=== PATIENT | male | born 1950 | race Caucasian/White ===

== ENCOUNTER → 2019-03-30 08:33 | Outpatient (CLI) | payer MEDICARE, OTHER, SELFPAY ==
[2019-03-30 09:06] LABS: Hematocrit 40.4 % (40-54); Mean Corp Hgb Conc 34.7 g/dL (32-36); Mean Corpuscular Hgb 31.8 pg (27.0-32.0); Mean Corpuscular Volume 91.8 fL (80-94); Mean Platelet Vol. 9.9 fl (6.2-12.0); Platelet Count 195 K/mm3 (150-450); RBC Distribution Width CV 12.4 % (11.6-14.6); White Blood Count 5.4 K/mm3 (4.4-11.0)
[2019-03-30 09:42] LABS: Vitamin B12 > 2000 pg/mL (211-911)
[2019-03-30 09:47] LABS: ALB/GLOB Ratio 1.2 RATIO (0.9-2.4); AST(SGOT) 18 U/L (15-37); Alanine Aminotransfer ALT/SGPT 23 U/L (16-61); Albumin, Serum 3.7 g/dL (3.2-5.0); Alkaline Phosphatase 77 U/L (45-117); Anion Gap 5 (5-15); BUN 17 mg/dL (7-18); Calcium,Total 8.6 mg/dL (8.5-10.1); Chloride 111 mmol/L (98-107); Cholesterol 142 mg/dL (200); Creatinine, Serum 0.94 mg/dL (0.70-1.30); EST Glomerular Filtration Rate 84 mL/min (>60); Est Glom Filt Rate - Afr Amer 102 mL/min (>60); Globulin 3.1 g/dL (2.2-4.2); Glucose 101 mg/dL (74-106); High Density Lipoprotein 45 mg/dL; Protein, Total 6.8 g/dL (6.4-8.2); Sodium Level 143 mmol/L (136-145); Triglycerides 92 mg/dL; Very Low Density Lipoprotein 18 mg/dL (5-40)
== END ==
DX: E78.2 Mixed hyperlipidemia (principal); R53.83 Other fatigue
CPT/HCPCS: 36415; 80053; 80061; 82607; 85027

== ENCOUNTER → 2025-02-07 | Outpatient (CLI) | payer MEDICARE, SELFPAY ==
--- NOTE | 2025-02-07 10:15 | PET_ITS ---
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 A preliminary CT study encompassing the Skull base, neck, chest, abdomen, pelvis, and proximal thighs was performed for purposes of attenuation correction and anatomic localization. The proximal thighs were also included. The patient's blood glucose level was 99 mg/dL (allowable range: 50-180 mg/dL). RADIOPHARMACEUTICAL: 15.43 mCi 18F-FDG (Fluorodeoxyglucose F18) IV was injected into the patient's left hand. RADIATION DOSE SUMMARY: Effective Dose: Approximately 7 mSv for a standard whole-body PET scan Organ Doses: Varies by organ, with higher doses typically to the bladder, liver, and brain COMPARISON: COMPARISON FROM CT, PET OR OTHER PERTINENT EXAMS: . FINDINGS: Physiologic uptake: There may be expected metabolic uptake within the brain, tongue and floor of the mouth and larynx/vocal cords, heart, tanja (many normal individuals have hilar uptake in less than 3 nodes with mildly avid hilar nodes less than 2.7 SUV), liver and spleen, system, and GI tract and symmetric muscle uptake. FDG AVID AND NON-AVID LESIONS. Reported avid SUV values (g/mL*) are maximum SUV. NECK: There are no significant neck abnormalities. CHEST: Chest wall- There are no significant chest wall abnormalities. Axilla- There are no significant axillary abnormalities. Lung parenchyma- There are no significant lung parenchyma abnormalities. Mediastinum- There are no significant hilar or mediastinal adenopathy. Pleura- There are no significant pleural abnormalities. ABDOMEN: Stomach- No significant abnormalities. Liver- No significant abnormalities. Spleen- No significant abnormalities. Pancrease- No significant abnormalities. Kidneys- No significant abnormalities. Bowel- Normal bowel activity. Spine- No significant abnormalities. PELVIS: Bowel- Normal physiologic bowel activity is identified. Masses- There are no pelvic masses. LOWER EXTREMITIES: Bones- With the use of bone window settings, there are no osteolytic or osteoblastic lesions. There are no FDG avid lesions within the visualized portion of the axial skeleton. PET/PET/CT Tumor Base -Thigh Init IMPRESSION: FDG avid- No significant avid lesions. Suspicious- No significant suspicious abnormalities. Non-FDG avid- No non-FDG avid cysts. Other: No additional comments. Please note the low-dose CT scan was performed to facilitate PET image reconstr uction and anatomic localization and does not replace a diagnostic CT. Any diagnostic CT requested and performed at the time of the PET will be reported separately. Reading Location: [facility]
== END | disposition home or self-care (01) ==
PROVIDERS: Referring Provider Nurse Practitioner Family; Visit Provider Nurse Practitioner Family
DX: M89.9 Disorder of bone, unspecified (principal); D48.7 Neoplasm of uncertain behavior of other specified sites; Z90.79 Acquired absence of other genital organ(s); Z85.46 Personal history of malignant neoplasm of prostate
CPT/HCPCS: 78815; A9552

== ENCOUNTER → 2025-03-23 | Outpatient (CLI) | payer MEDICARE, SELFPAY | END | disposition home or self-care (01) | LOC: CT 12:15 | PROVIDERS: PCP Nurse Practitioner Family; Referring Provider Internal Medicine; Visit Provider Internal Medicine | DX: M25.551 Pain in right hip (principal); R94.8 Abnormal results of function studies of other organs and systems | CPT/HCPCS: 72193; 73701; Q9967; A4216 ==

== ENCOUNTER → 2025-04-17 | Outpatient (CLI) | payer MEDICARE, SELFPAY ==
--- OUTSIDE RECORDS SUMMARY | 2025-04-17 15:17 | XMS RPT_ITS | CCD ---
Author Organization [facility] CliniSyne Care Team Providers Care Nuclear Medicine Supervisor Name Role Phone MASHA MONTANEZ Attending Unavailable PLATE, MAGI Primary Care Unavailable PLATE, MAGI Referring Unavailable PLATE, MAGI Attending Unavailable PLATE, MAGI Referring Unavailable PLATE, MAGI Primary Care Unavailable PLATE, MAGI Attending Unavailable PLATE, MAGI Referring Unavailable PLATE, MAGI Primary Care Unavailable PLATE, MAGI Attending Unavailable PLATE, MAGI Referring Unavailable PLATE, MAGI Primary Care Unavailable PLATE, MAGI Attending Unavailable PLATE, MAGI Referring Unavailable PLATE, MAGI Primary Care Unavailable Plate, Magi S Primary Care Provider [phone] ROOSEVELT DEBURRING TECHNICIAN-CEMENT CONVEYOR OPERATOR, BRINDA Primary Care Physician [phone] ROOSEVELT DEBURRING TECHNICIAN-CEMENT CONVEYOR OPERATOR, BRINDA Primary Care Unavaila ble ROCK DEBURRING TECHNICIAN-CEMENT CONVEYOR OPERATOR, LERSAMANTHA Attending Unavailabl e ROOSEVELT DEBURRING TECHNICIAN-CEMENT CONVEYOR OPERATOR, RBINDA Attending Unavaila ble ALBERT DEBURRING TECHNICIAN-CEMENT CONVEYOR OPERATOR, BRINDA Primary Care Unavaila ble ALAN DEBURRING TECHNICIAN-CEMENT CONVEYOR OPERATOR, YUSEF A Primary Care Physi avani Dr. Magi Francois DO Primary Care Provider [phone] Dr. Juan F Lugo MD Attending Provider [phone] Alek DESHPANDE-CNola Attending Provider Alek DESHPANDE-CNola Referring Provider Magi Francois DO Primary Care Provider Jewel Tirado DO Unavailable Dr. Charlee Higgins DO Attending Provider [phone] Charlee Higgins DO Referring Provider Alek DESHPANDE-Nola Tim Primary Care Provider Magi Francois Primary Care Unavailable Juan F Lugo Attending Unavailable Juan F Lugo Attending Unavailable [facility] Primary Care Unavailable Alessandro, [facility] Primary Care Unavailable Nola Gaston Referring Unavailable Nola Gaston Attending Unavailable Nola Gaston Primary Care Unavailable Fast, Charlee Referring Unavailable FastCharlee Attending Unavailable Medications Current Medications Medication Drug Class(es) Dates Sig (Normalized) Sig (Original) aspirin 81 mg delayed release oral tablet (5 sources) Platelet Aggregation Inhibitor, Nonsteroidal Anti-inflammatory Drug Start: 03-10-2016 take 1 tablet by mouth once daily Aspirin (Adult Low Dose Aspirin Ec) 81 MG tablet,delayed release (DR/EC) Active 81 mg PO DAILY March 10, 2016 12:00am calcium carbonate 1250 mg / cholecalciferol 200 unt oral tablet (1 source) Vitamin D Start: 05-08-2016 take 1 tablet by mouth once daily uyfxryq-hatwoidxe-z itamin D3 (CALCIUM 500+D) 500 mg(1,250mg) -200 unit per tablet Take 1 tablet by mouth once daily. 05/08/2016 Active 24 hr doxazosin 4 mg extended release oral tablet (4 sources) alpha-Adrenergic Yogesh Start: 03-10-2016 take 1 tablet by mouth every twenty-four hours at bedtime Doxazosin (Cardura Xl) 4 MG tablet extended release 24hr Active 4 mg PO AT BEDTIME March 10, 2016 12:00am ergocalciferol 1.25 mg oral capsule (4 sources) Provitamin D2 Compound Start: 03-10-2016 Ergocalciferol (Vitamin D2) (Vitamin D) 50,000 UNIT capsule Active 49196 U PO Q7D March 10, 2016 12:00am inositol 100 mg / niacin 400 mg oral capsule (4 sources) Nicotinic Acid Start: 03-10-2016 take 1 capsule by mouth once daily Niacin (Inositol Niacinate) (Niacin Flush Free 500 Mg Cap) 400 MG capsule Active 500 mg PO DAILY March 10, 2016 12:00am levoFLOXacin 500 mg oral tablet (4 sources) Quinolone Antimicrobial Start: 03-10-2016 take 1 tablet by mouth once daily Levofloxacin 500 MG tablet Active 500 mg PO DAILY 10 March 10, 2016 12:00am Multivitamin preparation (3 sources) Start: 08-30-2020 take 1 tablet by mouth once daily Multivitamin Dose = 1 tab(s), Oral, Daily, 0 Refill(s) Start Date: 08/30/20 Status: Ordered [place] 4-Ezw-Tdu-Fish Oil (Fish Oil) 500 MG capsule,delayed release(DR/EC) (4 sources) Start: 03-10-2016 take 1 capsule by mouth once daily [place] 6-Qnb-Osn-Fish Oil (Fish Oil) 500 MG capsule,delayed release(DR/EC) Active 500 mg PO DAILY March 10, 2016 12:00am [place]-3 Fatty Acids-Vitamin E 1,000 mg cap (2 sources) take 1 capsule by mouth once daily [place]-3 Fatty Acids-Vitamin E 1,000 mg cap Take 1 capsule by mouth once daily. Active take 1 capsule by mouth once jack ly [place]-3 Fatty Acids-Vitamin E 1,000 mg cap Take 1 capsule by mouth once daily. 0 Active Comment on above: Take 1 capsule by mo uth once daily. simvastatin 20 mg oral tablet (8 sources) HMG-CoA Reductase Inhibitor Start: 03-23-2023 simvastatin 20 mg oral tablet Dose : 20 mg = 1 tab(s), Oral, qHS, # 90 tab(s), 1 Refill(s), Pharmacy: [id number], 172.7, cm, 09/29/22 8:55:00 EST, Height, kg, 09/29/22 8:55:00 EST, Dosing Weight Start Date: 03/23/23 Status: Ordered Start: 11-16-2018 End: 04-26-2022 simvastatin 20 mg oral table t Dose : 20 mg = 1 tab(s), Oral, qHS, # 90 tab(s), 3 Refill(s), Pharmacy: [id number], 171, cm, 03/27/22 9:03:00 EDT, Height, kg, 03/27/22 9:03:00 EDT, Dosing Weight Start Date: 03/27/22 Status: Ordered Start: 04-18-2015 take 1 tablet by eric th at bedtime Simvastatin (Zocor) 5 MG tablet Active 5 mg PO AT BEDTIME April 18, 2015 12:00am Vitamin E (3 sources) Start: 05-23-2019 vitamin E Oral , qDay, 0 Refill(s) Start Date: 9/30/19 Status: Ordered Problems Active Problems Problem Classification Problem Date Documented Da te Episodic/Chronic Cancer of prostate (3 sources) History of malignant neoplasm of prostate 02-20-2020 Episodic Disorders of lipid metabolism (5 sources) Mixed hyperlipidemia; Translations: [Hyperlipidemia] Onset: 05-08-2016 05-08-2016 Chronic Genitourinary symptoms and ill-defined conditions (2 sources) Unspecified symptoms and signs involving the genitourinary system; Translations: [Unspecified symptoms and signs involving the genitourinary system] Onset: 07-24-2022 Episodic Hyperplasia of prostate (2 sources) Benign prostatic hypertrophy with outflow obstruction; Translations: [Benign prostatic hyperplasia] Onset: 11-18-2016 11-18-2016 Chronic Other bone disease and musculoskeletal deformities (1 source) Disorder of bone, unspecified; Translations: [Disorder of bone, unspecified] Onset: 02-13-2025 Episodic Other non-traumatic joint disorders (1 source) Pain in right hip; Translations: [Pain in right hip] Onset: 04-08-2025 Episodic Other nutritional; endocrine; and metabolic disorders (2 sources) Obesity, unspecified Onset: 05-11-2018 Chronic Other nutritional; endocrine; and metabolic disorders (1 source) Simple obesity ; Translations: [Non morbid obesity due to excess calories] Onset: 11-18-2016 11-18-2016 Chronic Other nutritional; endocrine; and metabolic disorders (1 source) Obesity caused by energy imbalance; Translations: [Other obesity due to excess calories] Onset: 11-18-2016 11-18-2016 Chronic Other nutritional; endocrine; and metabolic disorders (1 source) Obese class I; Translations: [Obesity, Class I, BMI 30-34.9] Onset: 05-12-2018 05-12-2018 Chronic Other nutritional; endocrine; and metabolic disorders (1 source) Obese class I; Translations: [Obesity, Class I, BMI 30-34.9] Onset: 05-12-2018 05-12-2018 Other skin disorders (1 source) Mass of head 04-06-2023 Episodic Residual codes; unclassified (1 source) Tobacco user; Translations: [Tobacco abuse] Onset: 11-18-2016 11-18-2016 Chronic Past or Other Problems Problem Classification Problem Date Documented Da te Episodic/Chronic Residual codes; unclassified (1 source) Tobacco user; Translations: [Tobacco use] Onset: 11-18-2016 11-18-2016 Episodic Results Test Name Value Interpretation Reference Range Facility Extremity Lower WITH Contras ton 03-23-2025 Extremity Lower WITH Contrast [facility] Imaging Services [address] [place], [place] [id number] Extremity Lower WITH Contrast MR#: [id number] Acct: [id number] Name: KUSHAL MARQUEZ JR, Jr. Rep #: [id number] : 1950 M 74 From: Alex Browne PCP: Nola Gaston, RN RADIOLOGY-C Status: REG CLI Study: Extremity Lower WITH Contrast Date of Exam: Exam# [id number] Ordering Dr: Charlee Higgins DO PROCEDURE: EXTREMITY LOWER WITH CONTRAST 03/23/2025 REASON FOR EXAM: CT FEMUR RIGHT W CONTRAST TECHNIQUE: EXTREMITY LOWER WITHOUT CONTRAST Coronal and Sagittal reconstruction series were provided. One or more dose reduction techniques were used (e.g., Automated exposure control, adjustment of the mA and/or kV according to patient size, use of iterative reconstruction technique). RADIATION DOSE SUMMARY: DLP: 2563.17 MGycm COMPARISON: Right hip and pelvis study of 02/13/25. 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 No right hip joint effusion is seen. Mild degenerative changes are noted of the visualized right sacroiliac joint. Limited imaging of the right knee demonstrates ufay-ry-itggdtul degenerative changes. No right knee joint effusion is noted. No other significant osseous abnormality is seen. No free or loculated fluid collection is noted. CT/Extremity Lower WITH Contrast IMPRESSION: No evidence of acute disease. Additional findings as noted. Reading Location: [place] [address] CC: RN RADIOLOGYMumtazC Nola Gaston; Dr. Charlee Higgins DO Home Care Consultant: Signed Normal [facility] Pelvis WITH IV Contraston Pelvis WITH IV Contrast [facility] Imaging Services [address] [place], [place] [address] Pelvis WITH IV Contrast MR#: [id number] Acct: [id number] Name: KUSHAL MARQUEZ JR, Jr. Rep #: [id number] 6 : 1950 M 74 From: Rancho lima MD PCP: NEGRITA Louis Status: REG CLI Study: Pelvis WITH IV Contrast Date of Exam: 03/23/25 Exam# [id number] Ordering Dr: Charlee Higgins DO PROCEDURE: PELVIS WITH IV CONTRAST 03/23/2025 REASON FOR EXAM: ABNORMAL PET Right hip pain and right pelvic pain. TECHNIQUE: PELVIS WITH IV CONTRAST CONTRAST: Isovue-300 VOLUME: 100 mL RADIATION DOSE SUMMARY: CTDlvol: 25.5 mGy DLP: 2563.17 mGycm COMPARISON: Prior PET scan dated February 09, 2025. FINDINGS: Bladder: Diffuse bladder wall thickening. Polypoid densities are seen in the base of the bladder. Bladder tumor should be ruled out. Prosthetic enlargement with indentation of the bladder base. Ureters: Unremarkable Prostate: Heterogeneous enlargement of the prostate with indentation of the bladder base. Bowel: Unremarkable Appendix: The appendix is not identified. There is no inflammatory process identified in the right lower quadrant to suggest appendicitis. Lymph nodes: Unremarkable Vasculature: Mild diffuse atherosclerotic calcifications are noted. Peritoneum / Retroperitoneum: No ascites. No free air. Bones: There is a 14 mm by 10 mm sclerotic focus along the lateral aspect of the right femoral neck. This most likely represents a bone island since it is not PET avid. Degenerative changes of the lower lumbar spine as well as both hip joints. CT/Pelvis WITH IV Contrast IMPRESSION: Sclerotic focus in the proximal right femur as described most likely representing a bone island. Bladder wall thickening and polypoid lesions suspected at the base of the bladder with prosthetic enlargement. Reading Location: [id number] CC: NEGRITA Gaston; Dr. Charlee Higgins DO Home Care Consultant: Signed [facility] 02-13-2025 [facility] Telephone (AKURFL) KUSHAL MARQUEZ JR ([id number]) 1950 M Date Time Provider Department 02/13/25 MASHA MONTANEZ During your visit today, we recorded the following information about you: Maria Del Rosario Munguia RN 02/13/2025 8:56 AM Signed Received call from Cheryl with [facility], patient is new to the practice and did not know his history or any surgery history. Informed Cheryl that patient had a bilateral orchiectomy in 2015. Gave Cheryl the phone number for medical records that patient can request his complete records. Maria Del Rosario Munguia RN Allergies As of Date: 02/13/2025 (No Known Allergies) Date Reviewed: 11/16/2018 Reviewed by: Magi Francois - Fully Assessed Reason for Visit: Question [1327] Prescriptions as of 02/13/2025 - simvastatin (ZOCOR) 20 mg tablet Take 1 tablet by mouth daily at bedtime. - ntkitor-bapdieugz-tv tamin D3 (CALCIUM 500+D) 500 mg(1,250mg) -200 unit per tablet Take 1 tablet by mouth once daily. - [place]-3 Fatty Acids-Vitamin E 1,000 mg cap Take 1 capsule by mouth once daily. Problem List As Of Date 02/13/2025 Noted Resolved Mixed hyperlipidemia [E78.2] 05/08/2016 Benign non-nodular prostatic hyperplasia with l*11/18/2016 Non morbid obesity due to excess calories [E66.*11/18/2016 Tobacco abuse [Z72.0] 11/18/2016 Obesity, Class I, BMI 30-34.9 [E66.811] 05/12/2018 Encounter Status:Closed by MARIA DEL ROSARIO MUNGUIA on 02/13/25 Normal [facility] HIP, UNI W/ Pelvis 2-3 Views on 02-13-2025 HIP, UNI W/ Pelvis 2-3 Views [facility] Imaging Services [address] [place] [address] HIP, UNI W/ Pelvis 2-3 Views MR#: [id number] Acct: [id number] Name: KUSHAL MARQUEZ JR, Jr. Rep #: [id number] 6 : 1950 M 74 From: Alex Browne PCP: Dr. Magi Francois DO Status: DEP AMB Study: HIP, UNI W/ Pelvis 2-3 Views Date of Exam: Exam# [id number] Ordering Dr: Charlee Higgins DO PROCEDURE: HIP, UNI W/ PELVIS 2-3 VIEWS 02/13/2025 REASON FOR EXAM: PELVIC JOINT PAIN, RIGHT TECHNIQUE: Three-view right hip to include the AP pelvis COMPARISON: PET-CT of 02/07/2025 and abdomen series of 01/17/2025.. RAD/HIP, UNI W/ Pelvis 2-3 Views IMPRESSION: Sclerotic focus of the lateral right femoral neck is again seen, which did not show hypermetabolic activity on the recent PET-CT. This most probably represents an enostosis. Mild bilateral hip joint degenerative changes are seen. No evidence of femoral head osteonecrosis. Hynb-nh-lzjfcsgq bilateral sacroiliac joint degenerative changes are noted. Prominent degenerative changes are seen of the visualized lower lumbar spine, particularly L5-S1. No fracture or dislocation is seen. Reading Location: [place] [address] CC: Dr. Magi Francois DO; Dr. Charlee Higgins DO Home Care Consultant: Signed Normal [facility] L/S Spine Min 4 Views01-23 L/S Spine Min 4 Views [facility] Imaging Services [address] [place] [address] [id number] L/S Spine Min 4 Views MR#: [id number] Acct: [id number] Name: KUSHAL MARQUEZ JR, Jr. Rep #: [id number] : 1950 M 74 From: Jerod Morgan MD PCP: Dr. Magi Francois DO Status: DEP AMB Study: L/S Spine Min 4 Views Date of Exam: 02/13/25 Exam# [id number] Ordering Dr: Charlee Higgins DO PROCEDURE: L/S SPINE MIN 4 VIEWS 02/13/2025 REASON FOR EXAM: PELVIC JOINT PAIN, RIGHT TECHNIQUE: L/S SPINE MIN 4 VIEWS COMPARISON: PET-CT on 02/07/2025 FINDINGS: There are 5 cwv-cmq-btrukjs lumbar-type vertebral bodies. Leftward curvature of the lumbar spine. No pars defect identified. Moderate multilevel disc height loss with endplate osteophyte formation and facet arthrosis. Aortic atherosclerosis. RAD/L/S Spine Min 4 Views IMPRESSION: Moderate multilevel degenerative changes of the lumbar spine. Reading Location: [id number] CC: Dr. Magi Francois DO; Dr. Charlee Higgins DO Home Care Consultant: Signed Normal [facility] Positron emission tomography scan reportOrdered By: Piyush Corbett on 02-09-2025 PT Unspecified body region [facility] Imaging Services [address] [place] [address] [id number] PET/CT Tumor Base -Thigh Init MR#: [id number] Acct: [id number] Name: KUSHAL MARQUEZ JR, Jr. Rep #: [id number] : 1950 M 74 From: Pet er Jovany SCHWARTZ PCP: Dr. Magi Francois DO Status: REG CLI Study:PET/CT Tumor Base -Thigh Init Date of E xam: 02/07/25 Exam# [id number] Ordering Dr: Glenroy Gaston RN RADIOLOGY-C ADDENDUM by Dr. Piyush Corbett DO on 02/09/25 at 1623 PELVIS: Bowel- Normal physiologic bowel activity is identified. Masses- There are no pelvic masses. LOWER EXTREMITIES: Bones- With the use of bone window settings, there is an osteoblastic left S1 segment sacral lesion. There is a punctate 8 mm focus of dense bone in the right femoral head representing either bone island erick osteoblastic metastatic focus. Neither of these lesions show uptake. There are no osteolytic or osteoblastic lesions. There are no FDG avid lesions within the visualized portion of the axial skeleton. Bilateral hip region, in the gluteus muscles, there is increased uptake measuring 3.95 maximum SUV. Surrounding muscle baseline background is 0.74 maximum SUV. This is felt to represent artifact from muscle activity before or during the scan, IMPRESSION FDG avid- No significant avid lesions. Suspicious- No significant suspicious abnormalities. Non-FDG avid- No non-FDG avid cysts. Other: Osteoblastic S1 lesion in right hip ground focus are likely bone metastatic disease but demonstrates no FDG uptake. Bilateral symmetric muscle uptake in the gluteus muscles is felt to represent artifact. Please note the low-dose CT scan was performed to facilitate PET image reconstruction and anatomic localization and does not replace a diagnostic CT. Any diagnostic CT requested and performed at the time of the PET will be reported separately. Reading Location: RAD-[facility]OV[facility]- 02/09/25 1624 Date cc: NEGRITA Gaston; Dr. 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 A preliminary CT study encompassing the Skull base, neck, chest, abdomen, pelvis, and proximal thighs was performed for purposes of attenuation correction and anatomic localization. The proximal thighs were also included. The patient's blood glucose level was 99 mg/dL (allowable range: 50-180 mg/dL). RADIOPHARMACEUTICAL: 15.43 mCi 18F-FDG (Fluorodeoxyglucose F18) IV was injected into the patient's left hand. RADIATION DOSE SUMMARY: Effective Dose: Approximately 7 mSv for a standard whole-body PET scan Organ Doses: Varies by organ, with higher doses typically to the bladder, liver,and brain COMPARISON: COMPARISON FROM CT, PET OR OTHER PERTINENT EXAMS: . FINDINGS: Physiologic uptake: There may be expected metabolic uptake within the brain, tongue and floor of the mouth and larynx/vocal cords, heart, tanja (many normal individuals have hilar uptake in less than 3 nodes with mildly avid hilar nodes less than 2.7 SUV), liver and spleen, system, and GI tract and symmetric muscle uptake. FDG AVID AND NON-AVID LESIONS. Reported avid SUV values (g/mL*) are maximum SUV. NECK: There are no significant neck abnormalities. CHEST: Chest wall- There are no significant chest wall abnormalities. Axilla- There are no significant axillary abnormalities. Lung parenchyma- There are no significant lung parenchyma abnormalities. Mediastinum- There are no significant hilar or mediastinal adenopathy. Pleura- There are no significant pleural abnormalities. ABDOMEN: Stomach- No significant abnormalities. Liver- No significant abnormalities. Spleen- No significant abnormalities. Pancrease- No significant abnormalities. Kidneys- No significant abnormalities. Bowel- Normal bowel activity. Spine- No significant abnormalities. PELVIS: Bowel- Normal physiologic bowel activity is identified. Masses- There are no pelvic masses. LOWER EXTREMITIES: Bones- With the use of bone window settings, there are no osteolytic or osteoblastic lesions. There are no FDG avid lesions within the visualized portion of the axial skeleton. PET/PET/CT Tumor Base -Thigh Init IMPRESSION: FDG avid- No significant avid lesions. Suspicious- No significant suspicious abnormalities. Non-FDG avid- No non-FDG avid cysts. Other: No additional comments. Please note the low-dose CT scan was performed to facilitate PET image reconstruction and anatomic localization and does not replace a diagnostic CT. Any diagnostic CT requested and performed at the time of the PET will be reported separately. Reading Location: [facility] CC: NEGRITA Gaston; Dr. Magi Francois DO (more content not included)... [facility] PET/CT Tumor Base -Thigh [facility] 02-07-2025 PET/CT Tumor Base -Thigh Init [facility] Imaging Services [address] [place] [address] [id number] PET/CT Tumor Base -Thigh Init MR#: [id number] Acct: [id number] Name: ALMA ZUNIGAKUSHAL HARKINS JrPedro Rep #: [id number] 6 : 1950 M 74 From: Piyush Corbett DO PCP: Dr. Magi Francois DO Status: REG CLI Study: PET/CT Tumor Base -Thigh Init Date of Exam: Exam# [id number] Ordering Dr: Nola Gaston ADDENDUM by Dr. Piyush Corbett DO on 02/09/25 at 1623 PELVIS: Bowel- Normal physiologic bowel activity is identified. Masses- There are no pelvic masses. LOWER EXTREMITIES: Bones- With the use of bone window settings, there is an osteoblastic left S1 segment sacral lesion. There is a punctate 8 mm focus of dense bone in the right femoral head representing either bone island or an osteoblastic metastatic focus. Neither of these lesions show uptake. There are no osteolytic or osteoblastic lesions. There are no FDG avid lesions within the visualized portion of the axial skeleton. Bilateral hip region, in the gluteus muscles, there is increased uptake measuring 3.95 maximum SUV. Surrounding muscle baseline background is 0.74 maximum SUV. This is felt to represent artifact from muscle activity before or during the scan, IMPRESSION FDG avid- No significant avid lesions. Suspicious- No significant suspicious abnormalities. Non-FDG avid- No non-FDG avid cysts. Other: Osteoblastic S1 lesion in right hip ground focus are likely bone metastatic disease but demonstrates no FDG uptake. Bilateral symmetric muscle uptake in the gluteus muscles is felt to represent artifact. Please note the low-dose CT scan was performed to facilitate PET image reconstruction and anatomic localization and does not replace a diagnostic CT. Any diagnostic CT requested and performed at the time of the PET will be reported separately. Reading Location: [facility] 02/09/25 1624 Date cc: NEGRITA Gaston; Dr. 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 A preliminary CT study encompassing the Skull base, neck, chest, abdomen, pelvis, and proximal thighs was performed for purposes of attenuation correction and anatomic localization. The proximal thighs were also included. The patient's blood glucose level was 99 mg/dL (allowable range: 50-180 mg/dL). RADIOPHARMACEUTICAL: 15.43 mCi 18F-FDG (Fluorodeoxyglucose F18) IV was injected into the patient's left hand. RADIATION DOSE SUMMARY: Effective Dose: Approximately 7 mSv for a standard whole-body PET scan Organ Doses: Varies by organ, with higher doses typically to the bladder, liver, and brain COMPARISON: COMPARISON FROM CT, PET OR OTHER PERTINENT EXAMS: . FINDINGS: Physiologic uptake: There may be expected metabolic uptake within the brain, tongue and floor of the mouth and larynx/vocal cords, heart, tanja (many normal individuals have hilar uptake in less than 3 nodes with mildly avid hilar nodes less than 2.7 SUV), liver and spleen, system, and GI tract and symmetric muscle uptake. FDG AVID AND NON-AVID LESIONS. Reported avid SUV values (g/mL*) are maximum SUV. NECK: There are no significant neck abnormalities. CHEST: Chest wall- There are no significant chest wall abnormalities. Axilla- There are no significant axillary abnormalities. Lung parenchyma- There are no significant lung parenchyma abnormalities. Mediastinum- There are no significant hilar or mediastinal adenopathy. Pleura- There are no significant pleural abnormalities. ABDOMEN: Stomach- No significant abnormalities. Liver- No significant abnormalities. Spleen- No significant abnormalities. Pancrease- No significant abnormalities. Kidneys- No significant abnormalities. Bowel- Normal bowel activity. Spine- No significant abnormalities. PELVIS: Bowel- Normal physiologic bowel activity is identified. Masses- There are no pelvic masses. LOWER EXTREMITIES: Bones- With the use of bone window settings, there are no osteolytic or osteoblastic lesions. There are no FDG avid lesions within the visualized portion of the axial skeleton. PET/PET/CT Tumor Base -Thigh Init IMPRESSION: FDG avid- No significant avid lesions. Suspicious- No significant suspicious abnormalities. Non-FDG avid- No non-FDG avid cysts. Other: No additional comments. Please note the low-dose CT scan was performed to facilitate PET image reconstruction and anatomic localization and does not replace a diagnostic CT. Any diagnos (more content not included)... Normal [facility] Acute Abdomen Inc [place] Acute Abdomen [facility] Chest [facility] Imaging Services [address] [place] [address] Acute Abdomen [facility] Chest MR#: [id number] Acct: [id number] Name: KUSHAL MARQUEZ JR, Jr. Rep #: [id number] M [id number] From: Montrell Pascal MD PCP: Dr. Magi Francois, DO Status: DEP AMB Study: Acute Abdomen Inc Chest Date of Exam: 01/17/25 Exam# [id number] Ordering Dr: Nola Gaston RN RADIOLOGY-C PROCEDURE: ACUTE ABDOMEN INC CHEST 01/17/2025 REASON FOR EXAM: ABDOMINAL PAIN, RLQ TECHNIQUE: Single view chest with supine and upright views of the abdomen. 2 upright views and 3 supine views to include the entire abdomen and pelvis, 6 total images COMPARISON: None available FINDINGS: The lungs appear clear. No evidence of free air. Nonspecific bowel gas pattern. No gaseous distention of bowel seen. A few scattered air-fluid levels noted. Leftward curvature lumbar spine. Sclerotic focus lateral right femoral neck and possible sclerotic focus posterior right 12th rib, possible metastatic disease. Lower lumbar spondylosis/discogen ic change. RAD/Acute Abdomen Inc Chest IMPRESSION: Nonspecific bowel gas pattern. A few osseous sclerotic foci noted, can not exclude metastatic disease. Reading Location: [facility] CC: RN RADIOLOGY-C Nola Gaston; Dr. Magi Francois DO Home Care Consultant: Signed Normal [facility] LABORATORYOrdered By: SYSTEM SYSTEM on 04-07-2023 Albumin BCP dye [Mass/Vol] 3.9 G/dL Invalid Interpretation Code 3.4 - 4.8 G/dL AO ADM SS Albumin/Globulin [Mass ratio] 1.3 {ratio} Invalid Interpretation Code 1.1 - 2.5 ratio AO ADM SS ALP [Catalytic activity/Vol] 85 U/L Invalid Interpretation Code 40 - 135 U/L AO ADM SS ALT With P-5'-P [Catalytic activity/Vol] 28 U/L Invalid Interpretation Code 16 - 63 U/L AO ADM SS AST With P-5'-P [Catalytic activity/Vol] 18 U/L Invalid Interpretation Code 10 - 40 U/L AO ADM SS Basophil, Absolute 0.1 103/mcL Invalid Interpretation Code 0.0 - 0.2 10^3/mcL AO Workflow SS Basophils/100 WBC (Bld) 0.8 % Invalid Interpretation Code 0.0 - 2.5 % AO Workflow SS Bilirubin [Mass/Vol] 0.7 mg/dL Invalid Interpretation Code 0.2 - 1.0 mg/dL AO ADM SS Comment on above: Interpretive Data: U se of this assay is not recommended for patients undergoing treatment with eltrombopag due to the potential for falsely elevated results. Calcium [Mass/Vol] 8.9 mg/dL Invalid Interpretation Code 8.4 - 10.2 mg/dL AO ADM SS Chloride [Moles/Vol] 106 mmol/L Invalid Interpretation Code 98 - 107 mmol/L AO ADM SS CO2 [Moles/Vol] 25 mmol/L Invalid Interpretation Code 23 - 31 mmol/L AO ADM SS Creatinine [Mass/Vol] 0.97 mg/dL Invalid Interpretation Code 0.70 - 1.30 mg/dL AO ADM SS Electrolyte Balance 13.0 mEq/L Invalid Interpretation Code 4.0 - 15.0 mEq/L AO ADM SS Eosinophil, Absolute 0.1 103/mcL Invalid Interpretation Code 0.0 - 0.4 10^3/mcL AO Workflow SS Eosinophils/100 WBC (Bld) 0.9 % Invalid Interpretation Code 0.0 - 7.0 % AO Workflow SS Erythrocyte distribution width (RBC) [Ratio] 12.9 % Invalid Interpretation Code 11.5 - 14.5 % AO Workflow SS GFR/1.73 sq M.predicted among blacks MDRD (S/P/Bld) [Vol rate/Area] 92 ml/min/1.73sqm Invalid Interpretation Code AO Chemistry S Comment on above: Interpretive Data: GFR Population mean for , Non- Americans Ages 20-29 = 116 mL/min/1.73 sq.m. Ages 30-39 = 107 mL/min/1.73 sq.m. Ages 40-49 = 99 mL/min/1.73 sq.m. Ages 50-59 = 93 mL/min/1.73 sq.m. Ages 60-69 = 85 mL/min/1.73 sq.m. Ages 70+ = 75 mL/min/1.73 sq.m. Chronic Kidney Disease: Less than 60 mL/min/1.73 square meters End Stage Renal Disease: Less than 15 mL/min/1.73 square meters GFR/1.73 sq M.predicted among non-blacks MDRD (S/P/Bld) [Vol rate/Area] 76 ml/min/1.73sqm Invalid Interpretation Code AO Chemistry S Comment on above: Interpretive Data: GFR Population mean for , Non- Americans Ages 20-29 = 116 mL/min/1.73 sq.m. Ages 30-39 = 107 mL/min/1.73 sq.m. Ages 40-49 = 99 mL/min/1.73 sq.m. Ages 50-59 = 93 mL/min/1.73 sq.m. Ages 60-69 = 85 mL/min/1.73 sq.m. Ages 70+ = 75 mL/min/1.73 sq.m. Chronic Kidney Disease: Less than 60 mL/min/1.73 square meters End Stage Renal Disease: Less than 15 mL/min/1.73 square meters Globulin 2.9 G/dL Invalid Interpretation Code AO ADM SS Glucose [Mass/Vol] 110 mg/dL Invalid Interpretation Code 83 - 110 mg/dL AO ADM SS Hematocrit (Bld) [Volume fraction] 42.5 % Invalid Interpretation Code 42.0 - 52.0 % AO Workflow SS Hemoglobin (Bld) [Mass/Vol] 14.8 G/dL Invalid Interpretation Code 14.0 - 18.0 G/dL AO Workflow SS Lymphocyte, Absolute 1.7 103/mcL Invalid Interpretation Code 0.8 - 3.9 10^3/mcL AO Workflow SS Lymphocytes/100 WBC (Bld) 27.2 % Invalid Interpretation Code 10.0 - 50.0 % AO Workflow SS MCH (RBC) [Entitic mass] 31.2 pg Invalid Interpretation Code 27.0 - 31.2 pg AO Workflow SS MCHC 34.8 G/dL Invalid Interpretation Code 31.8 - 35.4 G/dL AO Workflow SS MCV (RBC) [Entitic vol] 89.7 fL Invalid Interpretation Code 80.0 - 94.0 fL AO Workflow SS Monocyte, Absolute 0.6 103/mcL Invalid Interpretation Code 0.2 - 1.0 10^3/mcL AO Workflow SS Monocytes/100 WBC (Bld) 8.9 % Invalid Interpretation Code 1.7 - 13.0 % AO Workflow SS Neutrophil, Absolute 3.9 103/mcL Invalid Interpretation Code 2.9 - 6.2 10^3/mcL AO Workflow SS Neutrophils/100 WBC (Bld) 62.2 % Invalid Interpretation Code 37.0 - 80.0 % AO Workflow SS Platelet mean volume (Bld) [Entitic vol] 7.9 fL Invalid Interpretation Code 7.4 - 10.4 fL AO Workflow SS Platelets (Bld) [#/Vol] 232 103/mcL Invalid Interpretation Code 130 - 400 10^3/mcL AO Workflow SS Potassium [Moles/Vol] 4.3 mmol/L Invalid Interpretation Code 3.5 - 5.1 mmol/L AO ADM SS Prostate specific Ag [Mass/Vol] 0.10 ng/mL Invalid Interpretation Code 0.00 - 4.00 ng/mL AO ADM SS Protein [Mass/Vol] 6.8 G/dL Invalid Interpretation Code 6.4 - 8.2 G/dL AO ADM SS RBC (Bld) [#/Vol] 4.74 106/mcL Invalid Interpretation Code 4.04 - 6.13 10^6/mcL AO Workflow SS Sodium [Moles/Vol] 144 mmol/L Invalid Interpretation Code 136 - 145 mmol/L AO ADM SS Urea nitrogen [Mass/Vol] 12 mg/dL Invalid Interpretation Code 7 - 18 mg/dL AO ADM SS Urea nitrogen/Creatinine [Mass ratio] 12 ratio Invalid Interpretation Code 7 - 27 ratio AO ADM SS WBC (Bld) [#/Vol] 6.3 103/mcL Invalid Interpretation Code 4.6 - 10.8 10^3/mcL AO Workflow SS LABORATORYOrdered By: Yady Soto on 04-07-2023 Cholesterol [Mass/Vol] 123 mg/dL Invalid Interpretation Code 0 - 200 mg/dL AO ADM SS Comment on above: Interpretive Data: C holesterol Reference Interval: Less than 200 Desirable 200-239 Borderline high risk 240 and above High risk Cholesterol in HDL [Mass/Vol] 39 mg/dL Invalid Interpretation Code 40 - 60 mg/dL AO ADM SS Cholesterol in LDL [Mass/Vol] 64 mg/dL Invalid Interpretation Code 0 - 130 mg/dL AO ADM SS Triglyceride [Mass/Vol] 98 mg/dL Invalid Interpretation Code 0 - 150 mg/dL AO ADM SS Comment on above: Interpretive Data: T riglyceride Reference Interval: Less than 150 Normal 150-199 Borderline high risk 200-499 High risk 500 or higher Very high risk AMOXICILLIN+CLAVULANATE:SUSC :PT:ISOLATE:ORDQN:MICon 07-24-2022 Amoxicillin+Clavulana te HARVEY [Susc] >100,000 cfu/ml Escherichia coli [facility] Amoxicillin+Clavulanate HARVEY [Susc]on 12-01-2022 Escherichia coli Escherichia coli [facility] .Auto Diffon 01-27-2022 Basophil, Absolute 0.1 10 3/mcL Normal 0.0-0.2 [facility] ([place]) Comment on above: Performed By: #### L IPID, GFR, CMP #### [address] [address] Basophils/100 WBC (Bld) 0.8 % Normal 0.0-2.5 [facility] ([place]) Comment on above: Performed By: #### L IPID, GFR, CMP #### [address] [address] Eosinophil, Absolute 0.1 10 3/mcL Normal 0.0-0.4 [facility] ([place]) Comment on above: Performed By: #### L IPID, GFR, CMP #### [address] [address] Eosinophils/100 WBC (Bld) 1.4 % Normal 0.0-7.0 [facility] ([place]) Comment on above: Performed By: #### L IPID, GFR, CMP #### [address] [address] Lymphocyte, Absolute 1.9 10 3/mcL Normal 0.8-3.9 [facility] ([place]) Comment on above: Performed By: #### L IPID, GFR, CMP #### [address] [address] Lymphocytes/100 WBC (Bld) 29.8 % Normal 10.0-50.0 [facility] ([place]) Comment on above: Performed By: #### L IPID, GFR, CMP #### [address] [address] Monocyte, Absolute 0.6 10 3/mcL Normal 0.2-1.0 [facility] ([place]) Comment on above: Performed By: #### L IPID, GFR, CMP #### [address] [address] Monocytes/100 WBC (Bld) 9.8 % Normal 1.7-13.0 [facility] ([place]) Comment on above: Performed By: #### L IPID, GFR, CMP #### [address] [address] Neutrophils/100 WBC (Bld) 58.2 % Normal 37.0-80.0 [facility] ([place]) Comment on above: Performed By: #### L IPID, GFR, CMP #### [address] [address] .GFRon 01-27-2022 GFR Non- 72 ml/min/1.73sqm Normal [facility] ([place]) Comment on above: Result Comment: GFR Population mean for , Non- Americans Ages 20-29 = 116 mL/min/1.73 sq.m. Ages 30-39 = 107 mL/min/1.73 sq.m. Ages 40-49 = 99 mL/min/1.73 sq.m. Ages 50-59 = 93 mL/min/1.73 sq.m. Ages 60-69 = 85 mL/min/1.73 sq.m. Ages 70+ = 75 mL/min/1.73 sq.m. Chronic Kidney Disease: Less than 60 mL/min/1.73 square meters End Stage Renal Disease: Less than 15 mL/min/1.73 square meters Performed By: #### L IPID, GFR, CMP #### [address] [address] GFR 87 ml/min/1.73sqm Normal [facility] ([place]) Comment on above: Result Comment: GFR Population mean for , Non- Americans Ages 20-29 = 116 mL/min/1.73 sq.m. Ages 30-39 = 107 mL/min/1.73 sq.m. Ages 40-49 = 99 mL/min/1.73 sq.m. Ages 50-59 = 93 mL/min/1.73 sq.m. Ages 60-69 = 85 mL/min/1.73 sq.m. Ages 70+ = 75 mL/min/1.73 sq.m. Chronic Kidney Disease: Less than 60 mL/min/1.73 square meters End Stage Renal Disease: Less than 15 mL/min/1.73 square meters Performed By: #### L IPID, GFR, CMP #### [place] [id number] .MDWon 01-27-2022 Monocyte Distribution Width Not performed Normal 0.00-20.00 [facility] ([place]) Comment on above: Result Comment: MDW testing performed only on adult ER patients between the ages of 18-89 years. Performed By: #### L IPID, GFR, CMP #### [place] [address] .NEUABSon 01-27-2022 Neutrophil, Absolute 3.7 10 3/mcL Normal 2.9-6.2 [facility] ([place]) Comment on above: Performed By: #### L IPID, GFR, CMP #### [place] [address] CBCon 01-27-2022 Erythrocyte distribution width (RBC) [Ratio] 13.7 % Normal 11.5-14.5 [facility] ([place]) Comment on above: Performed By: #### L IPID, GFR, CMP #### [place] [address] Hematocrit (Bld) [Volume fraction] 42.9 % Normal 42.0-52.0 [facility] ([place]) Comment on above: Performed By: #### L IPID, GFR, CMP #### [place] [address] Hgb 14.5 G/dL Normal 14.0-18.0 [facility] ([place]) Comment on above: Performed By: #### L IPID, GFR, CMP #### [place] [id number] MCH (RBC) [Entitic mass] 30.9 pg Normal 27.0-31.2 [facility] ([place]) Comment on above: Performed By: #### L IPID, GFR, CMP #### [place] [address] MCHC 33.9 G/dL Normal 31.8-35.4 [facility] ([place]) Comment on above: Performed By: #### L IPID, GFR, CMP #### [address] [address] MCV (RBC) [Entitic vol] 91.1 fL Normal 80.0-94.0 [facility] ([place]) Comment on above: Performed By: #### L IPID, GFR, CMP #### [address] [address] Platelet 247 10 3/mcL Normal 130-400 [facility] ([place]) Comment on above: Performed By: #### L IPID, GFR, CMP #### [address] [address] Platelet mean volume (Bld) [Entitic vol] 7.8 fL Normal 7.4-10.4 [facility] ([place]) Comment on above: Performed By: #### L IPID, GFR, CMP #### [address] [address] RBC 4.71 10 6/mcL Normal 4.04-6.13 [facility] ([place]) Comment on above: Performed By: #### L IPID, GFR, CMP #### [address] [address] WBC 6.4 10 3/mcL Normal 4.6-10.8 [facility] ([place]) Comment on above: Performed By: #### L IPID, GFR, CMP #### [address] [address] CMPon 01-27-2022 Albumin Level 3.8 G/dL Normal 3.4-4.8 [facility] ([place]) Comment on above: Performed By: #### L IPID, GFR, CMP #### [address] [address] Albumin/Globulin [Mass ratio] 1.4 {ratio} Normal 1.1-2.5 [facility] ([place]) Comment on above: Performed By: #### L IPID, GFR, CMP #### [address] [address] ALP [Catalytic activity/Vol] 92 U/L Normal 40-135 [facility] ([place]) Comment on above: Performed By: #### L IPID, GFR, CMP #### [address] [address] ALT [Catalytic activity/Vol] 26 U/L Normal 16-63 [facility] ([place]) Comment on above: Performed By: #### L IPID, GFR, CMP #### [address] [address] AST [Catalytic activity/Vol] 14 U/L Normal 10-40 [facility] ([place]) Comment on above: Performed By: #### L IPID, GFR, CMP #### [address] [address] Bili Total 0.4 mg/dL Normal 0.2-1.0 [facility] ([place]) Comment on above: Result Comment: Use of this assay is not recommended for patients undergoing treatment with eltrombopag due to the potential for falsely elevated results. Performed By: #### L IPID, GFR, CMP #### [address] [address] BUN/Creatinine Ratio 12 ratio Normal 7-27 [facility] ([place]) Comment on above: Performed By: #### L IPID, GFR, CMP #### [address] [address] Calcium [Mass/Vol] 9.6 mg/dL Normal 8.4-10.2 [facility] ([place]) Comment on above: Performed By: #### L IPID, GFR, CMP #### [address] [address] Chloride [Moles/Vol] 108 mmol/L High 98-107 [facility] ([place]) Comment on above: Performed By: #### L IPID, GFR, CMP #### [address] [address] CO2 [Moles/Vol] 29 mmol/L Normal 23-31 [facility] ([place]) Comment on above: Performed By: #### L IPID, GFR, CMP #### [address] [address] Creatinine [Mass/Vol] 1.02 mg/dL Normal 0.70-1.30 [facility] ([place]) Comment on above: Performed By: #### L IPID, GFR, CMP #### [address] [address] Electrolyte Balance 8.0 mEq/L Normal 4.0-15.0 [facility] ([place]) Comment on above: Performed By: #### L IPID, GFR, CMP #### [address] [address] Globulin 2.8 G/dL Normal [facility] ([place]) Comment on above: Performed By: #### L IPID, GFR, CMP #### [address] [address] Glucose [Mass/Vol] 103 mg/dL Normal 83-110 [facility] ([place]) Comment on above: Performed By: #### L IPID, GFR, CMP #### [address] [address] Potassium [Moles/Vol] 4.4 mmol/L Normal 3.5-5.1 [facility] ([place]) Comment on above: Performed By: #### L IPID, GFR, CMP #### [address] [address] Sodium [Moles/Vol] 145 mmol/L Normal 136-145 [facility] ([place]) Comment on above: Performed By: #### L IPID, GFR, CMP #### [address] [address] Total Protein 6.6 G/dL Normal 6.4-8.2 [facility] ([place]) Comment on above: Performed By: #### L IPID, GFR, CMP #### [address] [address] Urea nitrogen [Mass/Vol] 12 mg/dL Normal 7-18 [facility] ([place]) Comment on above: Performed By: #### L IPID, GFR, CMP #### [place] [id number] [place] [id number] LABORATORYOrdered By: Jeremiah Tirado on 01-27-2022 Albumin BCP dye [Mass/Vol] 3.8 G/dL Invalid Interpretation Code 3.4 - 4.8 G/dL AO ADM SS Albumin/Globulin [Mass ratio] 1.4 {ratio} Invalid Interpretation Code 1.1 - 2.5 ratio AO ADM SS ALP [Catalytic activity/Vol] 92 U/L Invalid Interpretation Code 40 - 135 U/L AO ADM SS ALT With P-5'-P [Catalytic activity/Vol] 26 U/L Invalid Interpretation Code 16 - 63 U/L AO ADM SS AST With P-5'-P [Catalytic activity/Vol] 14 U/L Invalid Interpretation Code 10 - 40 U/L AO ADM SS Bilirubin [Mass/Vol] 0.4 mg/dL Invalid Interpretation Code 0.2 - 1.0 mg/dL AO ADM SS Calcium [Mass/Vol] 9.6 mg/dL Invalid Interpretation Code 8.4 - 10.2 mg/dL AO ADM SS Chloride [Moles/Vol] 108 mmol/L Invalid Interpretation Code 98 - 107 mmol/L AO ADM SS Cholesterol [Mass/Vol] 142 mg/dL Invalid Interpretation Code 0 - 200 mg/dL AO ADM SS Cholesterol in HDL [Mass/Vol] 43 mg/dL Invalid Interpretation Code 40 - 60 mg/dL AO ADM SS Cholesterol in LDL [Mass/Vol] 73 mg/dL Invalid Interpretation Code 0 - 130 mg/dL AO ADM SS CO2 [Moles/Vol] 29 mmol/L Invalid Interpretation Code 23 - 31 mmol/L AO ADM SS Creatinine [Mass/Vol] 1.02 mg/dL Invalid Interpretation Code 0.70 - 1.30 mg/dL AO ADM SS Electrolyte Balance 8.0 mEq/L Invalid Interpretation Code 4.0 - 15.0 mEq/L AO ADM SS Globulin 2.8 G/dL Invalid Interpretation Code AO ADM SS Glucose [Mass/Vol] 103 mg/dL Invalid Interpretation Code 83 - 110 mg/dL AO ADM SS Potassium [Moles/Vol] 4.4 mmol/L Invalid Interpretation Code 3.5 - 5.1 mmol/L AO ADM SS Protein [Mass/Vol] 6.6 G/dL Invalid Interpretation Code 6.4 - 8.2 G/dL AO ADM SS Sodium [Moles/Vol] 145 mmol/L Invalid Interpretation Code 136 - 145 mmol/L AO ADM SS Triglyceride [Mass/Vol] 132 mg/dL Invalid Interpretation Code 0 - 150 mg/dL AO ADM SS Urea nitrogen [Mass/Vol] 12 mg/dL Invalid Interpretation Code 7 - 18 mg/dL AO ADM SS Urea nitrogen/Creatinine [Mass ratio] 12 ratio Invalid Interpretation Code 7 - 27 ratio AO ADM SS LABORATORYOrdered By: Yady Elise on 01-27-2022 Basophil, Absolute 0.1 103/mcL Invalid Interpretation Code 0.0 - 0.2 10^3/mcL AO Workflow SS Basophils/100 WBC (Bld) 0.8 % Invalid Interpretation Code 0.0 - 2.5 % AO Workflow SS Eosinophil, Absolute 0.1 103/mcL Invalid Interpretation Code 0.0 - 0.4 10^3/mcL AO Workflow SS Eosinophils/100 WBC (Bld) 1.4 % Invalid Interpretation Code 0.0 - 7.0 % AO Workflow SS Erythrocyte distribution width (RBC) [Ratio] 13.7 % Invalid Interpretation Code 11.5 - 14.5 % AO Workflow SS Hematocrit (Bld) [Volume fraction] 42.9 % Invalid Interpretation Code 42.0 - 52.0 % AO Workflow SS Hgb 14.5 G/dL Invalid Interpretation Code 14.0 - 18.0 G/dL AO Workflow SS Lymphocyte, Absolute 1.9 103/mcL Invalid Interpretation Code 0.8 - 3.9 10^3/mcL AO Workflow SS Lymphocytes/100 WBC (Bld) 29.8 % Invalid Interpretation Code 10.0 - 50.0 % AO Workflow SS MCH (RBC) [Entitic mass] 30.9 pg Invalid Interpretation Code 27.0 - 31.2 pg AO Workflow SS MCHC 33.9 G/dL Invalid Interpretation Code 31.8 - 35.4 G/dL AO Workflow SS MCV (RBC) [Entitic vol] 91.1 fL Invalid Interpretation Code 80.0 - 94.0 fL AO Workflow SS Monocyte, Absolute 0.6 103/mcL Invalid Interpretation Code 0.2 - 1.0 10^3/mcL AO Workflow SS Monocytes/100 WBC (Bld) 9.8 % Invalid Interpretation Code 1.7 - 13.0 % AO Workflow SS Neutrophil, Absolute 3.7 103/mcL Invalid Interpretation Code 2.9 - 6.2 10^3/mcL AO Workflow SS Neutrophils/100 WBC (Bld) 58.2 % Invalid Interpretation Code 37.0 - 80.0 % AO Workflow SS Platelet 247 103/mcL Invalid Interpretation Code 130 - 400 10^3/mcL AO Workflow SS Platelet mean volume (Bld) [Entitic vol] 7.8 fL Invalid Interpretation Code 7.4 - 10.4 fL AO Workflow SS RBC 4.71 106/mcL Invalid Interpretation Code 4.04 - 6.13 10^6/mcL AO Workflow SS WBC 6.4 103/mcL Invalid Interpretation Code 4.6 - 10.8 10^3/mcL AO Workflow SS LABORATORYOrdered By: SYSTEM SYSTEM on 01-27-2022 GFR 87 ml/min/1.73sqm Invalid Interpretation Code AO Chemistry S GFR Non- 72 ml/min/1.73sqm Invalid Interpretation Code AO Chemistry S Monocyte distribution width Auto (Bld) [Entitic vol] Not Performed 1 *NA* (01/27/22 9:20 AM) Invalid Interpretation Code 0.00 - 20.00 AO Hematology S Comment on above: Result Comment: MDW testing performed only on adult ER patients between the ages of 18-89 years. LIPIDon 01-27-2022 Cholesterol [Mass/Vol] 142 mg/dL Normal 0-200 [facility] ([place]) Comment on above: Result Comment: Chol esterol Reference Interval: Less than 200 Desirable 200-239 Borderline high risk 240 and above High risk Performed By: #### L IPID, GFR, CMP #### [address] [address] Cholesterol in HDL [Mass/Vol] 43 mg/dL Normal 40-60 [facility] ([place]) Comment on above: Performed By: #### L IPID, GFR, CMP #### [address] [address] Cholesterol in LDL [Mass/Vol] 73 mg/dL Normal 0-130 [facility] ([place]) Comment on above: Performed By: #### L IPID, GFR, CMP #### [address] [address] Triglyceride [Mass/Vol] 132 mg/dL Normal 0-150 [facility] ([place]) Comment on above: Result Comment: Trig lyceride Reference Interval: Less than 150 Normal 150-199 Borderline high risk 200-499 High risk 500 or higher Very high risk Performed By: #### L IPID, GFR, CMP #### [place] [address] [place], [place] [address] Otheron 03-27-2016 CONVERTED CLINICAL HISTORY OPERATIVE PROCEDURE: Bilateral orchiectomy CLINICAL INFORMATION: Bilateral testicular masses [facility] CONVERTED ELECTRONIC SIGNATURE MARTIN MOTA M.D., PATHOLOGIST (Electronic signature on file) Final Signed Out: 03/27/2016 14:48 [facility] CONVERTED FINAL DIAGNOSIS FINAL DIAGNOSIS: A) RIGHT TESTICLE, ORCHIECTOMY - BENIGN TESTICULAR TISSUES WITH AREAS OF ABSCESS AND INFARCT. SPECIAL STAINS FOR BACTERIA, FUNGAL ORGANISMS, AND ACID FAST BACTERIA ARE NEGATIVE. HYDROCELE. SEE COMMENT. B) LEFT TESTICLE, ORCHIECTOMY - BENIGN TESTICULAR TISSUES WITH FOCAL CHRONIC INFLAMMATION AND AREAS OF MARKEDLY DILATED SEMINIFEROUS TUBULES. HYDROCELE. SEE COMMENT. COMMENT: The bilateral testicles have no evidence of malignancy identified. The markedly dilated seminiferous tubules present on the left side suggest an element of obstruction. Evidence of an infectious etiology cannot be identified on the performed special stains. Clinical correlation is required. This case was discussed with Dr. Montanez's restaurant assistant on 03/27/16 at 1 pm. [facility] CONVERTED GROSS DESCRIPTION GROSS DESCRIPTION: A) Right testicle Received in formalin labeled with the patient's name and as right testicle is a 103 gm right orchiectomy specimen that measures 7.5 x 5.5 x 5.0 cm with an attached transected spermatic cord that measures 3.5 cm in length x 2.0 cm in diameter. The tunica vaginalis is intact. The spermatic cord margin is inked orange and the remaining specimen is inked green. The specimen is bivalved to reveal a prominent serous fluid-filled cavity that measures 6.5 x 5.0 x 3.5 cm. The tunica albicans is focally obliterated and there is a poorly demarcated murphy-yellow fibrous mass identified that measures 1.8 x 1.6 x 1.3 cm. The tunica albicans is markedly thickened in the area of the mass and the mass resides 8.0 cm from the spermatic cord margin. The epididymis shows constricted/punctate tubular channels. The rete testis has a prominent appearance and measures 1.5 cm in greatest dimension. The seminiferous vesicles have a pale murphy fibrous appearance and do not string with ease. The specimen is representatively submitted as follows: A1 spermatic cord margin; A2 spermatic cord base; A3-A5 mass; A6-A7 sections of epididymis and rete testis; A8 sections of cyst wall. B) Left testicle Received in formalin labeled with the patient's name and as left testicle is a 102 gm left orchiectomy specimen that measures 7.7 x 5.5 x 4.0 cm with an attached transected spermatic cord that measures 1.6 cm in length x 2.0 cm in diameter. The tunica vaginalis is intact. The spermatic cord margin is inked orange and the remaining specimen is inked blue. The specimen is bivalved to reveal a prominent serous fluid-filled cystic cavity that measures 5.0 x 4.0 x 3.0 cm. The tunica albicans is intact and there is a poorly demarcated, murphy-yellow mass that measures 1.3 x 1.0 x 0.9 cm and is associated with fibrotic change. This mass resides 8.5 cm from the spermatic cord margin. The epididymis has constricted/punctate tubular channels and the rete testis has a somewhat prominent appearance and measures 1.0 cm in greatest dimension. The seminiferous vesicles are rivas-pink and string with ease. The specimen is representatively submitted as follows: B1 spermatic cord margin; B2-B3 entire mass; B4 epididymis; B5-B6 senior human resources representative section of parenchyma; B7 cyst wall. EM:[facility] CONVERTED ORDERING PROVIDER Ordering Provider: MASHA MONTANEZ [facility] Encounters Encounter Date Encounter Type Care Provider Facility Start: 03-23-2025 End: 03-23-[address] Magi Francois DO Work Phone: -[facility] Start: 03-23-2025 End: 03-23-[address] Charlee Higgins DO -[facility] Work Phone: Start: 03-23-2025 End: 03-23-2025 ambulatory Nola Gaston Facility:[facility] Start: 02-13-2025 End: 02-13-2025 Telephone encounter Masha Montanez MD Work Phone: [facility] Comment on above: Question Start: 02-13-2025 End: 02-13-[address] Juan F Lugo MD -[facility] Start: 02-13-2025 End: 02-13-[address] Magi Francois DO Work Phone: [facility] Work Phone: Start: 02-07-2025 End: 02-07-[address] Magi Francois DO Work Phone: [facility] Work Phone: Start: 02-07-2025 End: 02-07-2025 Patient encounter procedure Nola REES -[facility] Start: 02-07-2025 End: 02-07-2025 ambulatory Magi Francois Facility:[facility] Start: 01-17-2025 End: 01-17-[address] Juan F Lugo MD -[facility] Start: 01-17-2025 End: 01-17-[address] Magi Francois DO Work Phone: [facility] Work Phone: Start: 04-07-2023 End: 04-07-2023 Patient encounter procedure YUSEF PHILLIPS DEBURRING TECHNICIAN-CEMENT CONVEYOR OPERATOR [facility] Start: 07-24-2022 End: 07-29-2022 ambulatory BRINDA ALBERT DEBURRING TECHNICIAN-CEMENT CONVEYOR OPERATOR Facility:[facility] Start: 07-24-2022 End: 07-28-2022 Outreach Lab JOSE RESTREPO DEBURRING TECHNICIAN-CEMENT CONVEYOR OPERATOR [facility] Start: 01-27-2022 End: 01-28-2022 ambulatory BRINDA ALBERT DEBURRING TECHNICIAN-CEMENT CONVEYOR OPERATOR Facility:[facility] Start: 01-27-2022 End: 01-27-2022 Patient encounter procedure BRINDA ALBERT DEBURRING TECHNICIAN-CEMENT CONVEYOR OPERATOR [facility] Start: 05-20-2019 Patient encounter procedure MAGI PLATE Facility:[facility] Start: 11-16-2018 End: 11-16-2018 Patient encounter procedure MAGI PLATE Facility:[facility] Start: 05-11-2018 End: 05-11-2018 Patient encounter procedure MAGI PLATE Facility:[facility] Start: 04-29-2018 Patient encounter procedure MAGI PLATE Facility:[facility] Start: 01-21-2018 End: 01-21-2018 Patient encounter procedure MASHA MONTANEZ Facility:[facility] Start: 03-21-2016 End: 03-21-2016 Patient encounter procedure Masha Montanez Work Phone: [facility] Start: 03-21-2016 Results Only Masha Montanez Work Phone: [facility][1] Procedures Date Procedure Procedure Detail Performing Clinician Start: 03-23-2025 CT of lower limb wit h contrast Dr. Magi Francois DO Work Phone: Start: 03-23-2025 CT of pelvis with contrast Dr. Magi Francois DO Work Phone: Start: 02-13-2025 Plain x-ray of pelvi s and lower extremity Dr. Magi Francois DO Work Phone: Start: 02-13-2025 X-ray of lumbosacral spine Dr. Magi Francois DO Work Phone: Start: 02-07-2025 Positron emission tomography with computed tomography Dr. Magi Francois DO Work Phone: Start: 01-17-2025 Plain X-ray abdomen Dr. Magi Francois DO Work Phone: Start: 03-21-2016 CONVERTED SURGICAL PATHOLOGY Masha Montanez Work Phone: Prostatic structure (body structure) BRINDA ALBERT DEBURRING TECHNICIAN-CEMENT CONVEYOR OPERATOR Comment on above: tumor 04/09 Plan of Treatment Date Care Activity Detail Author Start: 04-24-2025 Influenza vaccination Influenz a Vaccine (Season Ended) [facility] Start: 02-13-2025 Plain x-ray of pelvi s and lower extremity HIP, UNI W/ Pelvis 2-3 Views [facility] Start: 02-13-2025 X-ray of lumbosacral spine L/S Spine Min 4 Views [facility] Start: 02-13-2025 XR Spine Lumbar and Sacrum GE 4 Views [facility] Start: 02-13-2025 Plain radiography of pelvis Pelvis 1 or 2 Views [facility] Start: 01-17-2025 Plain X-ray abdomen Abdomen Single V iew [facility] Start: 08-24-2024 Advance Directive Discussion Advance Directive Discussion [facility] Start: 04-24-2024 Covid-19 Vaccine ( season) Covid-19 Vaccine ( season) [facility] Start: 2023 RSV Vaccine (1 - 1-d ose 75+ series) RSV Vaccine (1 - 1-dose 75+ series) [facility] Start: 04-07-2023 Urine microalbumin profile [facility] Start: 11-16-2021 DIABETES SCREEN DIABETES SCREEN [facility] Start: 11-16-2021 Diabetes Screening Diabetes Screenin g [facility] Start: 09-25-2020 LIPID SCREEN LIPID SCREEN [facility] Start: 04-24-2020 Influenza vaccination INFLUENZA (#1) [facility] Start: 03-17-2018 Tuberculosis screening COLOREC DELMY CANCER SCREENING,SEE MODIFIER [facility] Start: 2013 ADVANCE DIRECTIVE DISCUSSION ADVANCE DIRECTIVE DISCUSSION [facility] Start: 1998 SHINGRIX VACCINE (1 of 2) TAVERA GRIX VACCINE (1 of 2) [facility] Start: 1966 Anxiety Screening Anxiety Screening [facility] Start: 1966 Depression Screening Depression Scre ening [facility] Immunizations Immunization Date Immunization Notes Care Provider Jeremy benavides 07-08-2021 SARS-CoV-2 (COVID-19 ) mRNA-1273 vaccine BRINDA ALBERT DEBURRING TECHNICIAN-CEMENT CONVEYOR OPERATOR [facility] 11-05-2020 COVID-19, mRNA, LNP- S, PF, 100 mcg or 50 mcg dose; Translations: [Moderna COVID-19 Vaccine] BRINDA ALBERT DEBURRING TECHNICIAN-CEMENT CONVEYOR OPERATOR [facility] 10-08-2020 COVID-19, mRNA, LNP- S, PF, 100 mcg or 50 mcg dose; Translations: [Moderna COVID-19 Vaccine] BRINDA ALBERT DEBURRING TECHNICIAN-CEMENT CONVEYOR OPERATOR [facility] 05-24-2020 influenza virus vacc ine, unspecified formulation BRINDA ALBERT DEBURRING TECHNICIAN-CEMENT CONVEYOR OPERATOR [facility] 05-23-2019 influenza, injectabl e, quadrivalent, preservative free; Translations: [Fluarix PF Quadrivalent ] BRINDA ALBERT DEBURRING TECHNICIAN-CEMENT CONVEYOR OPERATOR [facility] 05-11-2018 influenza virus vacc ine, unspecified formulation BRINDA ALBERT DEBURRING TECHNICIAN-CEMENT CONVEYOR OPERATOR [facility] 05-11-2018 influenza, high dose seasonal, preservative-free Masha Montanez MD Work Phone: [facility] 09-25-2015 influenza virus vacc ine, unspecified formulation BRINDA ALBERT DEBURRING TECHNICIAN-CEMENT CONVEYOR OPERATOR [facility] 09-25-2015 influenza, high dose seasonal, preservative-free Masha Montanez [facility] 09-25-2015 pneumococcal polysaccharide vaccine, 23 valent Masha Montanez MD Work Phone: [facility] 04-24-2015 pneumococcal conjuga te vaccine, 13 valent Masha Montanez [facility] 10-11-2013 influenza virus vacc ine, unspecified formulation BRINDA ALBERT DEBURRING TECHNICIAN-CEMENT CONVEYOR OPERATOR [facility] 10-11-2013 influenza, seasonal, injectable [facility] 10-11-2013 pneumococcal polysaccharide vaccine, [address] [facility] 04-07-2013 tetanus toxoid, redu junie diphtheria toxoid, and acellular pertussis vaccine, adsorbed [facility] Payers Date Payer Category Payer Self-pay 2022 Medicare [id number] 2013 Medicare MEDICARE MEDICAR E A AND B [id number] 2013-Present [place] Medicare [id number] 2013 Medicare MEDICARE [id number] 2013 Private Health Insurance HUMANA HUMANA MEDICARE SUPPLEMENT [id number] 2013-Present Indemnity [id number] 2013 Private Health Insurance HUMANA [id number] 1948 Unknown [id number] .[id number] 1950 Unknown [id number] .[id number] 1948 Unknown [id number] .[id number] 1948 Unknown [id number] .[id number] 1948 Unknown [id number] .[id number] 1948 Unknown [id number] .[id number] 1950 Unknown [id number] .[id number] Medicare [id number] Medicare [id number] Private Health Insurance [id number] Unknown [id number] Unknown [id number] .[id number] Unknown [id number] .[id number] Unknown [id number] .[id number] Social History Date Type Detail Facility Start: 01-29-2016 Tobacco smoking stat RUSTIS Unknown if ever smoked [facility] Start: 01-29-2016 End: 05-08-2016 Tobacco use and exposure Current user [facility] History of tobacco use Chews Tobacco [facility] Start: 01-29-2016 End: 11-16-2018 Alcohol intake Current non-drinker of alcohol (finding) [facility] Start: 1950 Sex Assigned At Not on file [facility] Tobacco Tobacco Use: sukumar wing tobacco. [facility] Sex Assigned At [facility] Start: 01-17-2025 End: 02-13-2025 Tobacco smoking status NHIS Ex-smoker (finding) [facility] Start: 1950 Sex Assigned At Male W [facility] History of tobacco use Current smoker [facility] Start: 11-16-2018 End: 07-29-2020 History of Social function [facility] Start: 11-16-2018 End: 07-29-2020 Tobacco use panel [facility] Adult Depression Screening Assessment 0 [facility] Clinical Notes 07-27-2022 to 03-23-2025 Telephone Encounter - Maria Del Rosario Munguia RN - 02/13/2025 8:53 AM EDTTelephone Encounter - Maria Del Rosario Munguia RN - 02/13/2025 8:53 AM EDTLaboratoryLaboratory Note Date & Type Note Facility 03-23-2025 Radiology Diagnostic study note [facility] Imaging Services [address], [place] [address] Extremity Lower WITH Contrast MR#: [id number] Acct: [id number] Name: ALMA ZUNIGAKUSHAL HARKINS Rep #: [id number] : [id number] M [id number] From: Bjorn Abbott MD PCP: Nola Gaston RN RADIOLOGY-C Status: REG C ORALIA Study:Extremity Lower WITH Contrast Date of E xam: 03/23/25 Exam# [id number] Ordering Dr: Doreen Higgins ra, DO PROCEDURE: EXTREMITY LOWER WITH CONTRAST 03/23/2025 REASON FOR EXAM: CT FEMUR RIGHT W CONTRAST TECHNIQUE: EXTREMITY LOWER WITHOUT CONTRAST Coronal and Sagittal reconstruction series were provided. One or more dose reduction techniques were used (e.g., Automated exposure control, adjustment of the mA and/or kV according to patient size, use of iterative reconstruction technique). RADIATION DOSE SUMMARY: DLP: 2563.17 MGycm COMPARISON: Right hip and pelvis study of 02/13/25. 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 No right hip joint effusion is seen. Mild degenerative changes are noted of the visualized right sacroiliac joint. Limited imaging of the right knee demonstrates [id number] degenerative changes. No right knee joint effusion is noted. No other significant osseous abnormality is seen. No free or loculated fluid collection is noted. CT/Extremity Lower WITH Contrast IMPRESSION: No evidence of acute disease. Additional findings as noted. Reading Location: [place] [address] CC: RN RADIOLOGY-C Nola Gaston; Dr. Charlee Higgins DO ~ Home Care Consultant: Signed [facility] 03-23-2025 Radiology Diagnostic study note [facility] Imaging Services [address] [place], [place] [address] Pelvis WITH IV Contrast MR#: [id number] Acct: [id number] Name: ALMA ZUNIGAKUSHAL HARKINS Rep #: [id number] : [id number] M [id number] From: Justice Jackson MD PCP: PENELOPE LouisC Status: REG C LI Study:Pelvis WITH IV Contrast Date of Exam: 03/23/25 Exam# [id number] Ordering Dr: Doreen Higgins ra, DO PROCEDURE: PELVIS WITH IV CONTRAST 03/23/2025 REASON FOR EXAM: ABNORMAL PET Right hip pain and right pelvic pain. TECHNIQUE: PELVIS WITH IV CONTRAST CONTRAST: Isovue-300 VOLUME: 100 mL RADIATION DOSE SUMMARY: CTDlvol: 25.5 mGy DLP: 2563.17 mGycm COMPARISON: Prior PET scan dated February 09, 2025. FINDINGS: Bladder: Diffuse bladder wall thickening. Polypoid densities are seen in the base of the bladder. Bladder tumor should be ruled out. Prosthetic enlargement with indentation of the bladder base. Ureters: Unremarkable Prostate: Heterogeneous enlargement of the prostate with indentation of the bladder base. Bowel: Unremarkable Appendix: The appendix is not identified. There is no inflammatory process identified in the right lower quadrant to suggest appendicitis. Lymph nodes: Unremarkable Vasculature: Mild diffuse atherosclerotic calcifications are noted. Peritoneum / Retroperitoneum: No ascites. No free air. Bones: There is a 14 mm by 10 mm sclerotic focus along the lateral aspect of theright femoral neck. This most likely represents a bone island since it is not PET avid. Degenerative changes of the lower lumbar spine as well as both hip joints. CT/Pelvis WITH IV Contrast IMPRESSION: Sclerotic focus in the proximal right femur as described most likely representing a bone island. Bladder wall thickening and polypoid lesions suspected at the base of the bladder with prosthetic enlargement. Reading Location: [id number] CC: NEGRITA Gaston; Dr. Charlee Higgins, DO ~ Home Care Consultant: Signed [facility] 02-13-2025 Telephone encounter Note Received call from Cheryl with [facility], patient is new to the practice and did not know his history or any surgery history. Informed Cheryl that patient had a bilateral orchiectomy in 2016. Gave Cheryl the phone number for medical records that patient can request his complete records. Maria Del Rosario Munguia RN [facility] Work Phone: 02-13-2025 Miscellaneous Notes Received call from Cheryl with [facility], patient is new to the practice and did not know his history or any surgery history. Informed Cheryl that patient had a bilateral orchiectomy in 2015. Gave Cheryl the phone number for medical records that patient can request his complete records. Maria Del Rosario Munguia RN documented in this encounter [facility] 07-27-2022 Note . MICRO - Microbiology PROCEDURE: Urine Culture [*1] SOURCE: Urine, Clean Catch BODY SITE: COLLECTED DATE/TIME: 07/24/2022 17:48 EST RECEIVED DATE/TIME: 07/25/2022 15:10 EST START DATE/TIME: 07/25/2022 15:10 EST FREE TEXT SOURCE: FINAL REPORTS Final Report [] Verified Date/Time/Personnel: 07/27/2022 08:18 EST >100,000 cfu/ml Escherichia coli SUSCEPTIBILITY RESULTS Escherichia coli Antibiotic HARVEY Dilut HARVEY Inter Ampicillin <=8 Susceptible Ampicillin/ <=4/2 Susceptible Sulbactam Aztreonam <=4 Susceptible Cefazolin <=2 Susceptible Ciprofloxacin <=0.25 Susceptible Ertapenem <=0.5 Susceptible Gentamicin <=2 Susceptible Imipenem <=1 Susceptible Levofloxacin <=0.5 Susceptible Meropenem <=1 Susceptible Minocycline <=4 Susceptible Nitrofurantoin <=32 Susceptible Trimethoprim/ <=0.5/9.5 Susceptible Sulfa Performing Locations *1: This test was performed at: [facility], [address] [place] [address], [facility] , [facility] ([place]) Evaluation + Plan note Future Appointments Appointment Date:03/19/2022 08:50:00 AM Scheduled Provider:BRINDA ALBERT Location:[place] Appointment Type:PC OV Follow Up Future Scheduled TestsLipid Profile 09/11/21Complete Metabolic Panel 03/12/21 [facility] Evaluation + Plan note Future Appointments Appointment Date:09/29/2022 09:00:00 AM Scheduled Provider:YUSEF PHILLIPS Location:[facility] Appointment Type:PC OV Future Scheduled TestsLipid Profile 09/11/21 [facility] Evaluation + Plan note Future Appointments Appointment Date:10/09/2023 09:00:00 AM Scheduled Provider:YUSEF PHILLPIS Location:[place] Appointment Type:PC OV [facility] Evaluation note No assessment inform ation available [facility] Work Phone: Hospital course Narrative No data available for this section [facility] Hospital Discharge instructions No data available for this section [facility] Progress note No data available for this section [facility] Reason for referral (narrative) No reason for referral information available [facility] Work Phone: Summary Purpose Family History No Family History Records FoundNo Family History Records Found No data available for this section No Family History Records FoundNo Family History Records Found Advance Directives No Advanced Directives Records FoundNo Advanced Directives Records FoundNo Advanced Directives Records FoundNo Advanced Directives Records Found Chief Complaint and Reason for Visit Chief Complaint Admit Date xray January 17, 2025 2:55p m Chief Complaint Admit Date xray January 17, 2025 2:55p m PI MODIFIER February 07, 2025 9:22 am XRAY February 13, 2025 8:29 am Chief Complaint Admit Date xray January 17, 2025 2:55p m PI MODIFIER February 07, 2025 9:22 am XRAY February 13, 2025 8:29 am ABN PET SCAN March 23, 2025 12:1 3pm Additional Source Comments (unrecognized sect ion and content) No Status Records FoundNo Status Records FoundNo Status Records FoundNo Status Records Found INFORMATION SOURCE (unrecogn ized section and content) DATE CREATED AUTHOR 11/19/2018 [facility] DATE CREATED AUTHOR AUTHOR'S ORGANIZ ATION 07/30/2022 [facility] ([place]) DATE CREATED AUTHOR AUTHOR'S ORGANIZ ATION 02/14/2025 [facility] DATE CREATED AUTHOR AUTHOR'S ORGANIZ ATION 04/09/2025 [facility] Source Comments (unrecognize d section and content) In the event this informatio n is protected by the Federal Confidentiality of Alcohol and Drug Abuse Patient Records regulations: The Federal rules restrict any use of the information to criminally investigate or prosecute any alcohol or drug abuse patient.[facility] the event this information is protected by the Federal Confidentiality of Alcohol and Drug Abuse Patient Records regulations: The Federal rules restrict any use of the information to criminally investigate or prosecute any alcohol or drug abuse patient.[facility] Care Team (unrecognized sect ion and content) Team Status: Active Member Role Status Dates Dr. Magi Francois DO Primary Care Provider Active Team Status: Inactive Member Role Status Dates Dr. Magi Francois DO Primary Care Provider Active Start: January 17, 2025 End: January 17, 2025 Dr. Juan F Lugo MD Attending Provider Active S tart: January 17, 2025 End: January 17, 2025 Team Status: Active Member Role Status Dates Dr. Magi Francois DO Primary Care Provider Active Start: February 07, 2025 NEGRITA Louis Attending Provider Active Start: February 07, 2025 NEGRITA Louis Referring Provider Active Start: February 07, 2025 Team Status: Inactive Member Role Status Dates Dr. Magi Francois DO Primary Care Provider Active Start: February 13, 2025 End: February 13, 2025 Dr. Juan F Lugo MD Attending Provider Active S tart: February 13, 2025 End: February 13, 2025 Team Status: Active Member Role Status Dates Dr. Magi Francois DO Family Provider Active Dr. Magi Francois DO Primary Care Provider Active Nuclear Medicine Supervisor Relationship Specialty Start Date End Date Magi Francois DO [address] [place], [place] [id number] PCP - General 07/06/15 Jewel Tirado DO 1 [facility] [address] [id number] Parole Agent Family Medicine 07/28/24 Team Status: Inactive Member Role Status Dates Dr. Magi Francois DO Primary Care Provider Active Start: February 07, 2025 End: February 07, 2025 NEGRITA Louis Attending Provider Active Start: February 07, 2025 End: February 07, 2025 NEGRITA Louis Referring Provider Active Start: February 07, 2025 End: February 07, 2025 Team Status: Active Member Role/Relationship Status Dates NEGRITA Louis Primary Care Provider Active Team Status: Inactive Member Role/Relationship Status Dates Dr. Magi Francois DO Primary Care Provider Active Start: January 17, 2025 End: January 17, 2025 Dr. Juan F Lugo MD Attending Provider Active S tart: January 17, 2025 End: January 17, 2025 Team Status: Inactive Member Role/Relationship Status Dates Dr. Magi Francois DO Primary Care Provider Active Start: February 07, 2025 End: February 07, 2025 NEGRITA Louis Attending Provider Active Start: February 07, 2025 End: February 07, 2025 NEGRITA Louis Referring Provider Active Start: February 07, 2025 End: February 07, 2025 Team Status: Inactive Member Role/Relationship Status Dates Dr. Magi Francois DO Primary Care Provider Active Start: February 13, 2025 End: February 13, 2025 Dr. Juan F Lugo MD Attending Provider Active S tart: February 13, 2025 End: February 13, 2025 Team Status: Inactive Member Role/Relationship Status Dates Dr. Charlee Higgins DO Attending Provider Active St art: March 23, 2025 End: March 23, 2025 Dr. Charlee Higgins DO Referring Provider Active St art: March 23, 2025 End: March 23, 2025 NEGRITA Louis Primary Care Provider Active Start: March 23, 2025 End: March 23, 2025 Care Team (unrecognized sect ion and content) Care Team Personnel Name: BRINDA ALBERT Position: P4 Advanced Practice Nurse Member Role: Primary Care Physician Address: Address: [address] [place] [id number] [place] [address] Care Team Related Persons Name: SHEN SHEETS Goals (unrecognized section and content) Goals may be documented in a n alternate section Reason for Visit (unrecogniz ed section and content) Reason Comments Question FOR RECORDS PERTAINING TO PATIENTS WHO ARE OR HAVE BEEN ENROLLED IN A CHEMICAL DEPENDENCY/SUBSTANCEABUSE PROGRAM, SOME INFORMATION MAY BE OMITTED. This clinical summary was aggregated from multiple sources. Caution should be exercised in using it in the provision of clinical care. This summary normalizes information from multiple sources, and as a consequence, information in this document may materially change the coding, format and clinical context of patient data. In addition, data may be omitted in some cases. CLINICAL DECISIONS SHOULD BE BASED ON THE PRIMARY CLINICAL RECORDS. [facility]. provides no warranty or guarantee of the accuracy or completeness of information in this document.
[2025-04-17 16:12] LABS: PSA,Total - Annual Screen 0.09 ng/mL (0.02-4.00)
== END | disposition home or self-care (01) ==
LOC: LAB 14:22
PROVIDERS: PCP Nurse Practitioner Family; Referring Provider Urology; Visit Provider Urology
DX: Z12.5 Encounter for screening for malignant neoplasm of prostate (principal)
CPT/HCPCS: 36415; 84153; G0103

== ENCOUNTER 2025-05-03 14:55 | Observation (INO) | payer MEDICARE, SELFPAY ==
[2025-05-03] VITALS (13 sets, daily range): BP systolic 122–168; BP diastolic 52–85; PULSE 62–74; RESP 16–18; TEMP 36.1–37.2; O2SAT 92–98; BMI 39.9
[2025-05-03] MEDS: Lactated Ringers 1,000 ML 15 ML IV (10:24)
--- NOTE | 2025-05-03 10:54 | PRE.ANES_ITS ---
ASA Classification* ASA Classification ASA Classification: 2 Assessment & Plan Anesthesia* Anesthesia Assessment Anesthesia Assessment: Discussed sedation and/or anesthesia options, risks, benefits, and alternatives with patient/parents/legal guardian/POA. Questions invited. The patient/parents/legal guardian/POA seems to understand and agrees to proceed with anesthesia plan. Reviewed the physical assessment, medical history, allergy history and patient home medications list prior to surgery/procedure/anesthetic and documented any changes. Performed airway and anesthesia risk assessments. Anesthesia Type Anesthesia Type: General History Source History Obtained from:: Patient, Chart and Significant Other () Anesthesia Focused Assessment* Temperature: 98.1 F Pulse Rate: 66 Blood Pressure: 168/70 Respiratory Rate: 17 Pulse Ox: 96 Oxygen Delivery Method: Room Air Airway Assessment Mouth opens: >3 cm Mallampati Score: II Teeth Condition: Missing (Very poor dentition. Only a few teeth present.) Neck Range of motion (ROM): Full ROM Labs Anesthesia Preop lab: CBC WBC 5.4 K/mm3 (4.4-11.0) 03/30/19 08:42 03/30/19 RBC 4.40 M/mm3 (4.6-6.2) L 03/30/19 08:42 03/30/19 Hgb 14.0 g/dL (13.0-16.5) 03/30/19 08:42 03/30/19 Hct 40.4 % (40-54) 03/30/19 08:42 03/30/19 Plt Count 195 K/mm3 (150-450) 03/30/19 08:42 03/30/19 CHEMISTRY Potassium 4.0 mmol/L (3.5-5.1) 03/30/19 08:42 03/30/19 Sodium 143 mmol/L (136-145) 03/30/19 08:42 03/30/19 BUN 17 mg/dL (7-18) 03/30/19 08:42 03/30/19 Creatinine 0.94 mg/dL (0.70-1.30) 03/30/19 08:42 03/30/19 Glucose 101 mg/dL (74-106) 03/30/19 08:42 03/30/19 COAG Pre-Assessment Diagnosis/Proposed Procedure Planned Operative Procedure(s): CYSTOSCOPY Anesthesia History Anesthesia History - assistant manager of operations: Anesthesia History - assistant manager of operations Hx Hospitalization No 04/28/25 11:46 Any Problems With Anesthesia No 04/28/25 11:46 Cholinesterase deficiency No 04/28/25 11:46 You/Your Family Experience No 04/28/25 11:46 fever (hyperthermia) with Relationship Recent Exposure to Contagious No 05/03/25 10:24 Disease Does patient have nerve No 04/28/25 11:46 stimulator Patient instructed to have device shut off --Does patient have Pacemaker No 05/03/25 10:24 or ICD? When Was Last Pacemaker Check QUESTION #4 FULL TEXT: You/Your Family Experience fever (hyperthermia) with Anesthesia Last Oral Intake Last Oral intake: Last Oral Intake NPO since 00:00 05/03/25 10:24 Meds taken in AM with sips of No 05/03/25 10:24 water? Meds patient instructed to take am of surgery PONV PONV - assistant manager of operations: PONV - assistant manager of operations Female No 04/28/25 11:46 HX of Motion Sickness No 04/28/25 11:46 HX of N/V After Surgery No 04/28/25 11:46 Non-Smoker Yes 04/28/25 11:46 Duration of Surgery greater No 04/28/25 11:46 than 60 minutes Number of Risk Factors 1 04/28/25 11:46 PONV Score Low Risk 04/28/25 11:46 Height & Weight Height & Weight: Anesthesia: Height & Weight Height 5 ft 8 in 05/03/25 10:24 Weight: 119 kg 05/03/25 10:24 Body Mass Index (BMI) 39.9 05/03/25 10:24 Respiratory Assessment Respiratory Assessment - assistant manager of operations: Respiratory Tract Infection Hx - assistant manager of operations Hx Respiratory Tract Infection No 04/28/25 11:46 STOP Sleep Apnea STOP Sleep Apnea - assistant manager of operations: STOP Sleep Apnea - assistant manager of operations Hx Hypertension No 04/28/25 11:46 Hx Sleep Apnea No 04/28/25 11:46 CPAP BIPAP Do you snore loudly (louder Yes 04/28/25 11:46 than talking or can be heard Do you often feel tired/ No 04/28/25 11:46 fatigued/ sleepy during daytime? Has anyone observed you stop No 04/28/25 11:46 breathing during sleep? STOP Results Negative 04/28/25 11:46 QUESTION #5 FULL TEXT : Do you snore loudly (louder than talking or can be heard through closed doors)? Tobacco Use History Tobacco Use History - assistant manager of operations: Tobacco Use History - assistant manager of operations Tobacco Use Smoking Status Current every day smoker 04/28/25 11:46 Hx Tobacco Use Yes 04/28/25 11:46 Years Smoking Packs Smoked per Day Smoking Cessation Date was within the last 15 years Hx Smoking Cessation Date Hx Smoking Cessation Counseling Hematologic Medial History Hematologic Hx - assistant manager of operations: Hematologic Medical Hx - adoption manager Hx of Blood Transfusion No 04/28/25 11:46 Hx of Transfusion in last 3 No 04/28/25 11:46 Months Date of Last Transfusion (if within last 3 months) Ever experience any problems No 04/28/25 11:46 with transfusion(s)? Specify any problems Hx of Preganancy in last 3 N/A 04/28/25 11:46 Months Nurse Filling Out Transfusion DSCHRIBER 04/28/25 11:46 & Questions: Date: 04/28/25 04/28/25 11:46 Time: 11:47 04/28/25 11:46 Patient unable to answer at this time (ie. confused, unrespo /Reproduction History /Reproductive History - assistant manager of operations: /Reproductive Hx- assistant manager of operations Hx Now No 04/28/25 11:46 Gestational Age (in weeks): EDC: Hx Hx Para Hx Section SAB No 04/28/25 11:46 Active Medications Active Medications: Current Medications Generic Name Dose Route Start Last Admin Trade Name Freq PRN Reason Stop Dose Admin Lactated Ringer's 1,000 mls @ 15 mls/hr 05/03/25 10:15 05/03/25 10:24 IV 15 mls/hr .Q48H LEONARD Administration PFSH Medical History Wears glasses Wears dentures Arthritis Bladder disease High cholesterol Back pain History of pain when walking History of edema Chewing tobacco use Home Medications Medication Instructions Recorded Last Taken Type omega 3-dha 60 mg-epa 90 mg-fish 500 mg PO DAILY 03/1004/28/25 History oil 500 mg capsule, delayed release (Fish Oil) acetaminophen 650 mg 650 mg PO Q12H PRN pain 01/1505/02/25 History tablet,extended release (Arthritis Pain Relief (acetaminophen) ER) cholecalciferol (vitamin D3) 50 50 mcg PO DAILY 05/02/25 History mcg (2,000 unit) capsule (Vitamin D3) docusate sodium 100 mg capsule 100 mg PO DAILY PRN con stipation 04/28/25 05/02/25 History (Stool Softener) furosemide 20 mg tablet 20 mg PO DAILY 04/28/2505/18 History simvastatin 20 mg tablet 20 mg PO QHS 04/28/25 History Allergy/AdvReac Type Severity Reaction Status Date / Time No Known Allergies Allergy Verified 05/03/25 10:23 Surgical History Hx of removal of testicle Social History Smoking Status: Current every day smoker tobacco type: smokeless tobacco Review of Systems (Anesthesia) ROS Narrative System reviewed and no additional complaints, except as documented.
[2025-05-03] MEDS: Cefazolin 1 GM/5 ML Vial 2 GM IV (12:05)
[2025-05-03] MEDS: Lidocaine 1% (20 ml mdv) 20 ML Vial (13:45)
[2025-05-03] MEDS: fentaNYL 100 MCG/2 ML Ampul 200 MCG IV (13:59)
--- NOTE | 2025-05-03 14:10 | DCINST_ITS ---
Discharge Instructions DC O2, CPAP, BIPAP needs Home O2 Discharge instructions: No Dressing / Incision Discharge Activity: May Not Drive and May Not Shower Lifting Restrictions: no lifting x 6 weeks Dressing / Incision Call your doctor if you observe: Fever of 101 or Higher and Uncontrolled pain Catheter: - (Suprapubic catheter) Drain: [place] Follow Up Care Please Follow Up With: Eliecer Rebollar MD When: Call [phone] for an appointment Test Results: Test results from this visit will be discussed in further detail at your follow- up appointment, if applicable. Discharge Plan Admission Attending Provider: Eliecer Rebollar Primary Care Provider: Nola Gaston Instructions Print Language: Danish Discharge Orders/Prescriptions Prescriptions: No Action Fish Oil 500 MG capsule,delayed release(DR/EC) 500 mg PO DAILY simvastatin 20 mg tablet 20 mg PO QHS furosemide 20 mg tablet 20 mg PO DAILY cholecalciferol (vitamin D3) [Vitamin D3] 50 mcg (2,000 unit) capsule 50 mcg PO DAILY docusate sodium [Stool Softener] 100 mg capsule 100 mg PO DAILY PRN (Reason: constipation) acetaminophen [Arthritis Pain Relief (acetam)] 650 mg tablet extended release 650 mg PO Q12H PRN (Reason: pain) Referrals / Follow Up: Nola Gaston, [employer] [Primary Care Provider] - Disposition Disposition (needs filled in before D/C Order can be placed): Home, Self Care
--- NOTE | 2025-05-03 14:12 | OP.PCM_ITS ---
Operative Report (Standard) Operative Information Date of Procedure: 05/03/25 Pre-Operative Diagnosis: Severe urethral stricture Post-Operative Diagnosis: The same Surgery/Procedure Performed: Cystoscopy, retrograde urethrogram, attempted dilation of urethral stricture unsuccessful, open converted to laparotomy and open suprapubic catheter placement timber management professor: Yes Supervisor Electronic Testing: Macho Sousa Tasks completed by patient assistant: Opening, Closing, Opening & closing, Harvesting grafts, Dissecting tissue, Removing tissue, Implanting device, Altering tissue, Insert Trochanter, Hemostasis: Clamp, Hemostasis: Tie, Hemostasis: Electrocautery, Trocar, Retracting and Other Type of Anesthesia: General RN Documented Start/Stop Times: Operation Date: 05/03/25 12:35 Case Time Into Pre-Op 05/03/25 10:04 Anesthesia Start 05/03/25 12:00 Into Room 05/03/25 12:00 Out of Pre-Op 05/03/25 12:00 Procedure Start Time: 12:11 Procedure Stop Time: 14:13 Select all DRAINS/GRAFTS/IMPLANTS that apply: Drains Drain details: Suprapubic catheter Estimated Blood Loss: 20 cc Specimen collected: No Description of surgery: Is a 75-year-old male who reported gross hematuria we did a workup and on workup office cystoscopy demonstrated a severe stricture in the what appeared to be bulbar urethra so today organ to take him to surgery for a retrograde pyelogram Rosenthal placement dilation of the stricture and Rosenthal placement, he was taken back to the operating room after anesthesia went inside the urethra with the cystoscope using a 21 [place]i rigid cystoscope was able to get down to the bulbar urethra was quite tight and then there was a pinpoint area right at the distal urethra which I thought would go right to the bladder put a wire through this but it just coiled and would not get into the bladder so then I put 100 cc of contrast in a bulb syringe we did a retrograde urethrogram and really only a tiny squeak of contrast would go to the bladder majority of the contrast was actually refluxing into the periurethral glands and the prostate tried to manipulate again and try to get the wire in but is completely unsuccessful with such a little amount of contrast going into the bladder he had a severe stricture was not able to get through safely so I went spoke to his family and recommended we do an open approach for open suprapubic catheter placement so patient was taken out of the's dorsolithotomy position and flat on the table he was reprepped and draped in a sterile fashion with a lower belly was draped I made a Pfannenstiel incision dissected down through the fat until I got to the anterior rectus fascia and then I opened up the fascia in a transverse fashion and identified the rectus muscles underneath there identified the midline of the rectus muscles and then split the muscles in the middle retracted the muscles laterally and then went further down and then by below this was the perivesical fat use electrocautery to dissect through the perivesical fat until I got to the muscle of the bladder and then opened up a small incision of the muscle the bladder and then immediately got a clear urine return of urine and then a 20 [place]i catheter was put into the bladder and then I then used a Vicryl stitch to do a pursestring around the bladder incision to go around the catheter to secure this to the bladder and then we took out the retractors to allow the muscles to come back to midline and then I reapproximated the muscles in the midline I then closed the fascia with a running 0 PDS with coming from the lateral edges to the midline once we closed the fascia then we reapproximated the fat underneath and then we closed the skin with subcuticular stitches we placed a suture to secure the suprapubic catheter to the skin and then Steri-Strips and dressings were placed on the incision. The patient will stay overnight for observation and then tomorrow we will send him home with a suprapubic catheter follow-up in my office I will probably refer the patient out to evaluate the urethral stricture to see if her reconstruction could be offered for severe Reath urethral stricture disease. But for now because of the severe stricture the bladder was not not emptying we put a suprapubic catheter patient stable and currently being reversed from anesthesia. Surgical Findings: Unable to put a wire through the urethral stricture into the bladder retrograde pyelogram contrast would not go into the bladder just a tiny bit of contrast will go into the bladder on ultrasound the bladder was distended converted to open and place an open suprapubic Complications Complications: Yes Complication Details: Unable to place Rosenthal catheter through severe urethral stricture had to convert to open suprapubic catheter placement Admit VTE Documentation VTE Present on Admission: No VTE Mechan Device Prophylaxis: SCD's VTE Pharm Prophylaxis ordered?: No
--- NOTE | 2025-05-03 14:30 | PCM.POST.ANE ---
Anesthesia: Postop Eval I Current Vital Signs Temperature: 97 F Pulse Rate: 63 Blood Pressure: 122/75 Respiratory Rate: 16 Pulse Ox: 94 Assessment Airway patent: Yes Spontaneous unlabored respirations: Yes nausea: No Vomiting: No Anesthesia Complication: No Fluid Hydration Crystalloid volume administer (ml): 1,000 Total IV fluid infused: 1,000 Progress Note Anesthesia document: Postop Eval 1 completed: Yes
--- NOTE | 2025-05-03 15:21 | POSTOPAN2_ITS ---
Anesthesia Postop Eval I Sum Postop Eval Completion status Anesthesia document: Postop Eval 1 completed: Yes Anesthesia Postop Eval I Summary Anesthesia Postop Eval I Summary: Anesthesia Postop Eval I: Assessment Summary Airway patent Yes 05/03/25 14:30 PUBLIC HEALTH ENGINEER.MEDM Spontaneous unlabored Yes 05/03/25 14:30 PUBLIC HEALTH ENGINEER.MEDM respirations Mental status nausea No 05/03/25 14:30 PUBLIC HEALTH ENGINEER.MEDM Vomiting No 05/03/25 14:30 PUBLIC HEALTH ENGINEER.MEDM Anesthesia Postop Eval I: Fluid Summary Crystalloid volume administer 1,000 05/03/25 14:30 PUBLIC HEALTH ENGINEER.MEDM (ml) Colloids volume administered ( ml) Blood Product volume administered (ml) Total IV fluid infused 1,000 05/03/25 14:30 PUBLIC HEALTH ENGINEER.MEDM Anesthesia Postop Eval I: Summary Notes Anesthesia Complication No 05/03/25 14:30 PUBLIC HEALTH ENGINEER.MEDM Anesthesia Complication Comment: Post-operative progress note Anesthesia: Postop Eval II Evaluation Mental status: Awake and Calm Pain Level: 1 nausea: No Vomiting: No Complications Anesthesia Complication: No
--- NOTE | 2025-05-03 15:21 | PCM.POSTANE2 ---
Anesthesia Postop Eval I Sum Postop Eval Completion status Anesthesia document: Postop Eval 1 completed: Yes Anesthesia Postop Eval I Summary Anesthesia Postop Eval I Summary: Anesthesia Postop Eval I: Assessment Summary Airway patent Yes 05/03/25 14:30 REAL ESTATE ASSISTANT.MEDM Spontaneous unlabored Yes 05/03/25 14:30 REAL ESTATE ASSISTANT.MEDM respirations Mental status nausea No 05/03/25 14:30 REAL ESTATE ASSISTANT.MEDM Vomiting No 05/03/25 14:30 REAL ESTATE ASSISTANT.MEDM Anesthesia Postop Eval I: Fluid Summary Crystalloid volume administer 1,000 05/03/25 14:30 REAL ESTATE ASSISTANT.MEDM (ml) Colloids volume administered ( ml) Blood Product volume administered (ml) Total IV fluid infused 1,000 05/03/25 14:30 REAL ESTATE ASSISTANT.MEDM Anesthesia Postop Eval I: Summary Notes Anesthesia Complication No 05/03/25 14:30 REAL ESTATE ASSISTANT.MEDM Anesthesia Complication Comment: Post-operative progress note Anesthesia: Postop Eval II Evaluation Mental status: Awake and Calm Pain Level: 1 nausea: No Vomiting: No Complications Anesthesia Complication: No
[2025-05-03] MEDS: 0.9% Normal Saline (1000mL) 1,000 ML 125 ML IV (16:05)
--- OUTSIDE RECORDS SUMMARY | 2025-05-03 22:07 | XMS RPT_ITS | CCD ---
Author Organization [facility] CliniSyme Care Team Providers Care Poultry Barn Manager Name Role Phone MASHA MONTANEZ Attending Unavailable [...] Unavailable Plate, Magi S Primary Care Provider ROOSEVELT HARBOUR MASTER-SEAT COVER CUTTER, BRINDA Primary Care Physician ROOSEVELT HARBOUR MASTER-SEAT COVER CUTTER, BRINDA Primary Care Unavaila ble ROCK HARBOUR MASTER-SEAT COVER CUTTER, LERICA Attending Unavailabl e ROOSEVELT HARBOUR MASTER-SEAT COVER CUTTER, BRINDA Attending Unavaila ble ALBERT HARBOUR MASTER-SEAT COVER CUTTER, BRINDA Primary Care Unavaila ble ALAN HARBOUR MASTER-SEAT COVER CUTTER, YUSEF A Primary Care Physi avani Alessandro SCHWARTZ, Dr. Sow Primary Care Provider [phone] Brittney LAMA, Dr. Rogel Attending Provider Alek EQUAL EMPLOYMENT OPPORTUNITY OFFICER-[place] Attending Provider Alek EQUAL EMPLOYMENT OPPORTUNITY OFFICER-[place] Referring Provider Plate DO, Magi Ocasio Primary Care Provider Jewel Tirado DO Unavailable Dr. Charlee Higgins DO Attending Provider Dr. Charlee Higgins DO Referring Provider Alek EQUAL EMPLOYMENT OPPORTUNITY OFFICER-[place] Primary Care Provider Keturah LAMA, Dr. Eliecer Barcenas Attending Provider Dr. Eliecer Rebollar MD Referring Provider AlekNola Referring Unavailable Plate, [facility] Primary Care Unavailable AlekNola hayes Attending Unavailable Fast, Charlee Attending Unavailable Fast, Charlee Referring Unavailable Alek, Nola Primary Care Unavailable Eliecer Rebollar Attending Unavailable Eliecer Rebollar Referring Unavailable Alek, Nola Primary Care Unavailable Eliecer Rebollar Attending Unavailable Eliecer Rebollar Referring Unavailable Alek, Nola Primary Care Unavailable [facility], [facility] Primary Care Unavailable Juan F Lugo Attending Unavailable Plate, [facility] Primary Care Unavailable BrittneyJuan F hawk Attending Unavailable Medications Current Medications Medication Drug Class(es) Dates Sig (Normalized) Sig (Original) aspirin 81 mg delayed release oral tablet (6 sources) Platelet Aggregation Inhibitor, Nonsteroidal Anti-inflammatory Drug Start: 03-10-2016 take 1 tablet by mouth once daily Aspirin (Adult Low Dose Aspirin Ec) 81 MG tablet,delayed release (DR/EC) Active 81 mg PO DAILY March 10, 2016 12:00am calcium carbonate 1250 mg / cholecalciferol 200 unt oral tablet (1 source) Vitamin D Start: 05-08-2016 take 1 tablet by mouth once daily ndljlff-bidiahnpe-s itamin D3 (CALCIUM 500+D) 500 mg(1,250mg) -200 unit per tablet Take 1 tablet by mouth once daily. 05/08/2016 Active 24 hr doxazosin 4 mg extended release oral tablet (5 sources) alpha-Adrenergic Yogesh Start: 03-10-2016 take 1 tablet by mouth every twenty-four hours at bedtime Doxazosin (Cardura Xl) 4 MG tablet extended release 24hr Active 4 mg PO AT BEDTIME March 10, 2016 12:00am ergocalciferol 1.25 mg oral capsule (5 sources) Provitamin D2 Compound Start: 03-10-2016 Ergocalciferol (Vitamin D2) (Vitamin D) 50,000 UNIT capsule Active 36614 U PO Q7D March 10, 2016 12:00am inositol 100 mg / niacin 400 mg oral capsule (5 sources) Nicotinic Acid Start: 03-10-2016 take 1 capsule by mouth once daily Niacin (Inositol Niacinate) (Niacin Flush Free 500 Mg Cap) 400 MG capsule Active 500 mg PO DAILY March 10, 2016 12:00am levoFLOXacin 500 mg oral tablet (5 sources) Quinolone Antimicrobial Start: 03-10-2016 take 1 tablet by mouth once daily Levofloxacin 500 MG tablet Active 500 mg PO DAILY March 10, 2016 12:00am Multivitamin preparation (3 sources) Start: 08-30-2020 take 1 tablet by mouth once daily Multivitamin Dose = 1 tab(s), Oral, Daily, 0 Refill(s) Start Date: 08/30/20 Status: Ordered Lamona 1-Qvw-Gcp-Fish Oil (Fish Oil) 500 MG capsule,delayed release(DR/EC) (5 sources) Start: 03-10-2016 take 1 capsule by mouth once daily Lamona 8-Gft-Wij-Fish Oil (Fish Oil) 500 MG capsule,delayed release(DR/EC) Active 500 mg PO DAILY March 10, 2016 12:00am Lamona-3 Fatty Acids-Vitamin E 1,000 mg cap (2 sources) take 1 capsule by mouth once daily Lamona-3 Fatty Acids-Vitamin E 1,000 mg cap Take 1 capsule by mouth once daily. Active take 1 capsule by mouth once jack ly Lamona-3 Fatty Acids-Vitamin E 1,000 mg cap Take 1 capsule by mouth once daily. 0 Active Comment on above: Take 1 capsule by [facility] once daily. simvastatin 20 mg oral tablet (9 sources) HMG-CoA Reductase Inhibitor Start: 03-23-2023 simvastatin 20 mg oral tablet Dose : 20 mg = 1 tab(s), Oral, qHS, # 90 tab(s), 1 Refill(s), Pharmacy: [facility], 172.7, cm, 09/29/22 8:55:00 EST, Height, kg, 09/29/22 8:55:00 EST, Dosing Weight Start Date: 03/23/23 Status: Ordered Start: 11-16-2018 End: 04-26-2022 simvastatin 20 mg oral table t Dose : 20 mg = 1 tab(s), Oral, qHS, # 90 tab(s), 3 Refill(s), Pharmacy: [facility], 171, cm, 03/27/22 9:03:00 EDT, Height, kg, 03/27/22 9:03:00 EDT, Dosing Weight Start Date: 03/27/22 Status: Ordered Start: 04-18-2015 take 1 tablet by eric th at bedtime Simvastatin (Zocor) 5 MG tablet Active 5 mg PO AT BEDTIME April 18, 2015 12:00am Vitamin E (3 sources) Start: 05-23-2019 vitamin E Oral , qDay, 0 Refill(s) Start Date: 05/23/19 Status: Ordered Problems Active Problems Problem Classification [...] I, BMI 30-34.9] Onset: 05-12-2018 05-12-2018 Other screening for suspected conditions (not mental disorders or infectious disease) (1 source) Encounter for screening for malignant neoplasm of prostate; Translations: [Encounter for screening for malignant neoplasm of prostate] Onset: 04-21-2025 Episodic Other skin disorders (1 source) Mass of head 04-06-2023 Episodic Residual codes; unclassified (1 source) Tobacco user; Translations: [Tobacco abuse] Onset: 11-18-2016 11-18-2016 Chronic Past or Other Problems Problem Classification Problem Date Documented Da te Episodic/Chronic Residual codes; unclassified (1 source) Tobacco user; Translations: [Tobacco use] Onset: 11-18-2016 11-18-2016 Episodic Results Test Name Value Interpretation Reference Range Facility PSA,Total - Annual Screenon 04-17-2025 PSA,TOT SCREEN 0.09 ng/mL Normal 0.02-4.00 [facility] Comment on above: Result Comment: This test was performed using the Moviest[employer] tPSA method. Measured values of a patient??sample can vary depending on the testing procedure used. PSA values determined on patient samples by different testing procedures cannot be used interchangeably. If there is a change in PSA assays while monitoring therapy, sequential testing should be performed to confirm baseline values. Performed By: #### L [phone] #### [facility] [address] [facility]. [place], [place], [address] Extremity Lower WITH Contras ton 03-23-2025 Extremity Lower WITH Contrast [facility] [address] [place], [place] [address] Extremity Lower WITH Contrast MR#: [id number] Acct: [id number] Name: ALMA JRKUSHAL TORIN Cohen Rep #: [id number] : 1950 M 74 From: Alex Browne PCP: Nola Gaston NP-C Status: REG CLI Study: Extremity Lower WITH Contrast Date of Exam: Exam# [id number] Ordering Dr: Charlee Higgins DO PROCEDURE: EXTREMITY [...] Limited imaging of the right knee demonstrates xsvc-vp-yqwomkby degenerative changes. No right knee joint effusion is noted. No other significant osseous abnormality is seen. No free or loculated fluid collection is noted. CT/Extremity Lower WITH Contrast IMPRESSION: No evidence of acute disease. Additional findings as noted. Reading Location: [place] [address] CC: EQUAL EMPLOYMENT OPPORTUNITY OFFICER-C Nola Gaston; Dr. Charlee Higgins DO Quality Control Tech Raw Materials: Signed Normal [facility] Pelvis WITH IV Contraston Pelvis WITH IV Contrast [facility] [address] [place] [address] Pelvis WITH IV Contrast MR#: [id number] Acct: [id number] Name: ALMA JRKUSHAL TORIN Cohen Rep #: [id number] : 1950 M 74 From: [place] MD PCP: NEGRITA Louis Status: REG CLI Study: Pelvis WITH IV Contrast Date of Exam: 03/23/25 Exam# [id number] Ordering Dr: Charlee Higgins DO PROCEDURE: PELVIS [...] the bladder with prosthetic enlargement. Reading Location: [id number] CC: NEGRITA Gaston; Dr. Charlee Higgins DO Quality Control Tech Raw Materials: Signed [facility] 02-13-2025 [facility] Telephone (AKURFL) KUSHAL MARQUEZ JR ([id number]) 1950 M Date Time Provider Department 02/13/25 [...] Allergies) Date Reviewed: 11/16/2018 Reviewed by: Magi Wilson - Fully Assessed Reason for Visit: Question [1327] Prescriptions as of 02/13/2025 - simvastatin (ZOCOR) 20 mg tablet Take 1 tablet by mouth daily at bedtime. - edoerzc-bhxiwtjzi-ro tamin D3 (CALCIUM 500+D) 500 mg(1,250mg) -200 unit per tablet Take 1 tablet by mouth once daily. - Lamona-3 Fatty Acids-Vitamin E 1,000 mg cap Take 1 capsule by mouth once daily. Problem List As Of Date 02/13/2025 Noted Resolved Mixed hyperlipidemia [E78.2] 05/08/2016 Benign non-nodular prostatic hyperplasia with l*11/18/2016 Non morbid obesity due to excess calories [E66.*11/18/2016 Tobacco abuse [Z72.0] 11/18/2016 Obesity, Class I, BMI 30-34.9 [E66.811] 05/12/2018 Encounter Status:Closed by MARIA DEL ROSARIO MUNGUIA on 02/13/25 Normal [facility] HIP, UNI W/ Pelvis 2-3 Views on 02-13-2025 HIP, UNI W/ Pelvis 2-3 Views [facility] [address] [place] [id number] HIP, UNI W/ Pelvis 2-3 Views MR#: [id number] Acct: [id number] Name: KUSHAL MARQUEZ JR, Jr. Rep #: [id number] : 1950 M 74 From: Alex Browne PCP: Dr. Magi Wilson DO Status: DEP AMB Study: HIP, UNI W/ Pelvis 2-3 Views Date of Exam: Exam# [id number] Ordering Dr: Charlee Higgins DO PROCEDURE: HIP, [...] seen. No evidence of femoral head osteonecrosis. Ppml-lr-vwxsrzfl bilateral sacroiliac joint degenerative changes are noted. Prominent degenerative changes are seen of the visualized lower lumbar spine, particularly L5-S1. No fracture or dislocation is seen. Reading Location: [place] [address] CC: Dr. Magi Wilson DO; Dr. Charlee Higgins DO Quality Control Tech Raw Materials: Signed Normal [facility] L/S Spine Min 4 Viewson 01-23 L/S Spine Min 4 Views [facility] [address] [place] [address] L/S Spine Min 4 Views MR#: [id number] Acct: [id number] Name: KUSHAL MARQUEZ JR, Jr. Rep #: [id number] : 1950 M 74 From: Jerod Morgan MD PCP: Dr. Magi Wilson DO Status: DEP AMB Study: L/S Spine Min 4 Views Date of Exam: 02/13/25 Exam# [id number] Ordering Dr: Charlee Higgins DO PROCEDURE: L/S SPINE MIN 4 VIEWS 02/13/2025 REASON FOR EXAM: PELVIC JOINT PAIN, RIGHT TECHNIQUE: L/S SPINE MIN 4 VIEWS COMPARISON: PET-CT on 02/07/2025 FINDINGS: There are 5 ivh-vbh-twbdwsh lumbar-type vertebral bodies. Leftward curvature of the lumbar spine. No pars defect identified. Moderate multilevel disc height loss with endplate osteophyte formation and facet arthrosis. Aortic atherosclerosis. RAD/L/S Spine Min 4 Views IMPRESSION: Moderate multilevel degenerative changes of the lumbar spine. Reading Location: [id number] CC: Dr. Magi Wilson DO; Dr. Charlee Higgins DO Quality Control Tech Raw Materials: Signed Normal [facility] Positron emission tomography scan reportOrdered By: Piyush Corbett on 02-09-2025 PT Unspecified body region [facility] [address] [place], [place] [id number] PET/CT Tumor Base -Thigh Init MR#: [id number] Acct: [id number] Name: KUSHAL MARQUEZ JR, Jr. Rep #: [id number] : 1950 M 74 From: Pet er Jovany SCHWARTZ PCP: Dr. Magi Wilson DO Status: REG CLI Study:PET/CT Tumor Base -Thigh Init Date of E xam: 02/07/25 Exam# [id number] Ordering Dr: Glenroy Gaston ADDENDUM by Dr. Piyush Corbett DO [...] PET will be reported separately. [facility] 02/09/25 1624 Date cc: NEGRITA Gaston; Dr. Magi Wilson DO ~* Signed PROCEDURE: PET/CT TUMOR BASE [...] PET will be reported separately. Reading [facility] CC: NEGRITA Gaston; Dr. Magi Wilson DO (more content not included)... [facility] PET/CT Tumor Base -Thigh Ini ton 02-07-2025 PET/CT Tumor Base -Thigh Init [facility] [address] [place], [place] [address] PET/CT Tumor Base -Thigh Init MR#: [id number] Acct: [id number] Name: ALMA JRKUSHAL HARKINS . Rep #: [id number] : 1950 M 74 From: Piyush Corbett DO PCP: Dr. Magi Wilson DO Status: REG CLI Study: PET/CT Tumor Base -Thigh Init Date of Exam: Exam# [id number] Ordering Dr: Nola Gaston ADDENDUM by Dr. [...] PET will be reported separately. Reading Location: RAD-JOVANY-NL 02/09/25 1624 Date cc: NEGRITA Gaston; Dr. Magi Wilson, DO * Signed PROCEDURE: PET/CT TUMOR BASE [...] Any diagnos (more content not included)... Normal [facility] Acute Abdomen Inc Cheston Acute Abdomen Inc Chest [facility] [address] [place] [id number] Acute Abdomen Inc Chest MR#: [id number] Acct: [id number] Name: KUSHAL MARQUEZ JR, Jr. Rep #: [id number] : 1950 M 74 From: Montrell Pascal MD PCP: Dr. Magi Wilson, DO Status: DEP AMB Study: Acute Abdomen Inc Chest Date of Exam: 01/17/25 Exam# [id number] Ordering Dr: Nola Gaston EQUAL EMPLOYMENT OPPORTUNITY OFFICER-C PROCEDURE: ACUTE ABDOMEN INC CHEST 01/17/2025 REASON [...] can not exclude metastatic disease. Reading Location: [facility] CC: NEGRITA Gaston; Dr. Magi Wilson DO Quality Control Tech Raw Materials: Signed Normal [facility] LABORATORYOrdered By: SYSTEM SYSTEM on 04-07-2023 [...] te HARVEY [Susc] >100,000 cfu/ml Escherichia coli [facility] Amoxicillin+Clavulanate HARVEY [Susc]on 07-24-2022 Escherichia coli Escherichia coli [facility] .Auto Diffon 01-27-2022 Basophil, Absolute 0.1 10 3/mcL Normal 0.0-0.2 [facility] ([place]) Comment on above: Performed By: #### L IPID, GFR, CMP #### [place] [address] [place], [place] [address] Basophils/100 WBC (Bld) 0.8 % Normal 0.0-2.5 [facility] ([place]) Comment on above: Performed By: #### L IPID, GFR, CMP #### [facility] [address] [place], [place] [address] Eosinophil, Absolute 0.1 10 3/mcL Normal 0.0-0.4 [facility] ([place]) Comment on above: Performed By: #### L IPID, GFR, CMP #### [address] [address] Eosinophils/100 WBC (Bld) 1.4 % Normal 0.0-7.0 [facility] ([place]) Comment on above: Performed By: #### L IPID, GFR, CMP #### [address] [address] Lymphocyte, Absolute 1.9 10 3/mcL Normal 0.8-3.9 [facility] ([place]) Comment on above: Performed By: #### L IPID, GFR, CMP #### [address] [address] Lymphocytes/100 WBC (Bld) 29.8 % Normal 10.0-50.0 [facility] ([place]) Comment on above: Performed By: #### L IPID, GFR, CMP #### [address] [address] Monocyte, Absolute 0.6 10 3/mcL Normal 0.2-1.0 [facility] ([place]) Comment on above: Performed By: #### L IPID, GFR, CMP #### [address] [address] Monocytes/100 WBC (Bld) 9.8 % Normal 1.7-13.0 [facility] ([place]) Comment on above: Performed By: #### L IPID, GFR, CMP #### [address] [address] Neutrophils/100 WBC (Bld) 58.2 % Normal 37.0-80.0 [facility] ([place]) Comment on above: Performed By: #### L IPID, GFR, CMP #### [address] [address] .GFRon 01-27-2022 GFR Non- 72 ml/min/1.73sqm Normal [facility] ([place]) Comment on above: Result Comment: GFR Population [...] By: #### L IPID, GFR, CMP #### [address] [address] GFR 87 ml/min/1.73sqm Normal [facility] ([place]) Comment on above: Result Comment: GFR Population [...] By: #### L IPID, GFR, CMP #### [address] [address] .MDWon 01-27-2022 Monocyte Distribution Width Not performed Normal 0.00-20.00 [facility] ([place]) Comment on above: Result Comment: MDW testing performed only on adult ER patients between the ages of 18-89 years. Performed By: #### L IPID, GFR, CMP #### [address] [address] .NEUABSon 01-27-2022 Neutrophil, Absolute 3.7 10 3/mcL Normal 2.9-6.2 [facility] ([place]) Comment on above: Performed By: #### L IPID, GFR, CMP #### [place] [id number] CBCon 01-27-2022 Erythrocyte distribution width (RBC) [Ratio] 13.7 % Normal 11.5-14.5 [facility] ([place]) Comment on above: Performed By: #### L IPID, GFR, CMP #### [address] [address] Hematocrit (Bld) [Volume fraction] 42.9 % Normal 42.0-52.0 [facility] ([place]) Comment on above: Performed By: #### L IPID, GFR, CMP #### [place] [address] Hgb 14.5 G/dL Normal 14.0-18.0 [facility] ([place]) Comment on above: Performed By: #### L IPID, GFR, CMP #### [place] [id number] MCH (RBC) [Entitic mass] 30.9 pg Normal 27.0-31.2 [facility] ([place]) Comment on above: Performed By: #### L IPID, GFR, CMP #### [place] [address] MCHC 33.9 G/dL Normal 31.8-35.4 [facility] ([place]) Comment on above: Performed By: #### L IPID, GFR, CMP #### [address] [address] MCV (RBC) [Entitic vol] 91.1 fL Normal 80.0-94.0 [facility] ([place]) Comment on above: Performed By: #### L IPID, GFR, CMP #### [address] [address] Platelet 247 10 3/mcL Normal 130-400 [facility] ([place]) Comment on above: Performed By: #### L IPID, GFR, CMP #### [address] [address] Platelet mean volume (Bld) [Entitic vol] 7.8 fL Normal 7.4-10.4 [facility] ([place]) Comment on above: Performed By: #### L IPID, GFR, CMP #### [address] [address] RBC 4.71 10 6/mcL Normal 4.04-6.13 [facility] ([place]) Comment on above: Performed By: #### L IPID, GFR, CMP #### [address] [address] WBC 6.4 10 3/mcL Normal 4.6-10.8 [facility] ([place]) Comment on above: Performed By: #### L IPID, GFR, CMP #### [address] [address] CMPon 01-27-2022 Albumin Level 3.8 G/dL Normal 3.4-4.8 [facility] ([place]) Comment on above: Performed By: #### L IPID, GFR, CMP #### [address] [address] Albumin/Globulin [Mass ratio] 1.4 {ratio} Normal 1.1-2.5 [facility] ([place]) Comment on above: Performed By: #### L IPID, GFR, CMP #### [address] [address] ALP [Catalytic activity/Vol] 92 U/L Normal 40-135 [facility] ([place]) Comment on above: Performed By: #### L IPID, GFR, CMP #### [address] [address] ALT [Catalytic activity/Vol] 26 U/L Normal 16-63 [facility] ([place]) Comment on above: Performed By: #### L IPID, GFR, CMP #### [address] [address] AST [Catalytic activity/Vol] 14 U/L Normal 10-40 [facility] ([place]) Comment on above: Performed By: #### L IPID, GFR, CMP #### [address] [address] Bili Total 0.4 mg/dL Normal 0.2-1.0 [facility] ([place]) Comment on above: Result Comment: Use of this assay is not recommended for patients undergoing treatment with eltrombopag due to the potential for falsely elevated results. Performed By: #### L IPID, GFR, CMP #### [address] [address] BUN/Creatinine Ratio 12 ratio Normal 7-27 [facility] ([place]) Comment on above: Performed By: #### L IPID, GFR, CMP #### [address] [address] Calcium [Mass/Vol] 9.6 mg/dL Normal 8.4-10.2 [facility] ([place]) Comment on above: Performed By: #### L IPID, GFR, CMP #### [address] [address] Chloride [Moles/Vol] 108 mmol/L High 98-107 [facility] ([place]) Comment on above: Performed By: #### L IPID, GFR, CMP #### [address] [address] CO2 [Moles/Vol] 29 mmol/L Normal 23-31 [facility] ([place]) Comment on above: Performed By: #### L IPID, GFR, CMP #### [address] [address] Creatinine [Mass/Vol] 1.02 mg/dL Normal 0.70-1.30 [facility] ([place]) Comment on above: Performed By: #### L IPID, GFR, CMP #### [address] [address] Electrolyte Balance 8.0 mEq/L Normal 4.0-15.0 [facility] ([place]) Comment on above: Performed By: #### L IPID, GFR, CMP #### [address] [address] Globulin 2.8 G/dL Normal [facility] ([place]) Comment on above: Performed By: #### L IPID, GFR, CMP #### [address] [address] Glucose [Mass/Vol] 103 mg/dL Normal 83-110 [facility] ([place]) Comment on above: Performed By: #### L IPID, GFR, CMP #### [address] [address] Potassium [Moles/Vol] 4.4 mmol/L Normal 3.5-5.1 [facility] ([place]) Comment on above: Performed By: #### L IPID, GFR, CMP #### [address] [address] Sodium [Moles/Vol] 145 mmol/L Normal 136-145 [facility] ([place]) Comment on above: Performed By: #### L IPID, GFR, CMP #### [address] [address] Total Protein 6.6 G/dL Normal 6.4-8.2 [facility] ([place]) Comment on above: Performed By: #### L IPID, GFR, CMP #### [address] [address] Urea nitrogen [Mass/Vol] 12 mg/dL Normal 7-18 [facility] ([place]) Comment on above: Performed By: #### L IPID, GFR, CMP #### [address] [address] LABORATORYOrdered By: Jeremiah Tirado on 01-27-2022 Albumin [...] 01-27-2022 Cholesterol [Mass/Vol] 142 mg/dL Normal 0-200 [facility] ([place]) Comment on above: Result Comment: Chol esterol Reference Interval: Less than 200 Desirable 200-239 Borderline high risk 240 and above High risk Performed By: #### L IPID, GFR, CMP #### [address] [address] Cholesterol in HDL [Mass/Vol] 43 mg/dL Normal 40-60 [facility] ([place]) Comment on above: Performed By: #### L IPID, GFR, CMP #### [address] [address] Cholesterol in LDL [Mass/Vol] 73 mg/dL Normal 0-130 [facility] ([place]) Comment on above: Performed By: #### L IPID, GFR, CMP #### [address] [address] Triglyceride [Mass/Vol] 132 mg/dL Normal 0-150 [facility] ([place]) Comment on above: Result Comment: Trig lyceride Reference Interval: Less than 150 Normal 150-199 Borderline high risk 200-499 High risk 500 or higher Very high risk Performed By: #### L IPID, GFR, CMP #### [address] [address] Otheron 03-27-2016 CONVERTED CLINICAL HISTORY OPERATIVE PROCEDURE: Bilateral orchiectomy CLINICAL INFORMATION: Bilateral testicular masses [facility] CONVERTED ELECTRONIC SIGNATURE MARTIN MOTA M.D., PATHOLOGIST (Electronic signature on file) Final Signed Out: 03/27/2016 14:48 [facility] CONVERTED FINAL DIAGNOSIS FINAL DIAGNOSIS: A) RIGHT [...] This case was discussed with Dr. Montanez's workforce development assistant on 03/27/16 at 1 pm. [facility] CONVERTED GROSS DESCRIPTION GROSS DESCRIPTION: A) Right [...] margin; B2-B3 entire mass; B4 epididymis; B5-B6 medical sales representative section of parenchyma; B7 cyst wall. EM:[facility] ORDERING PROVIDER Ordering Provider: MASHA MONTANEZ [facility] Encounters Encounter Date Encounter Type Care Provider Facility Start: 05-03-2025 ambulatory Eliecer Rebollar [facility] lity:[facility] Start: 04-17-2025 End: 04-17-[address] Magi Wilson DO Work Phone: -Laboratory Start: 04-17-2025 End: 04-17-[address] Eliecer Rebollar MD -Laboratory Work Phone: Start: 04-17-2025 End: 04-17-2025 ambulatory Eliecer Rebollar Facility:[facility] Start: 03-23-2025 End: 03-23-[address] Magi Wilson DO Work Phone: -Cat Scan [facility] Start: 03-23-2025 End: 03-23-[address] Charlee Higgins DO -Cat Scan [facility] Work Phone: Start: 03-23-2025 End: 03-23-2025 ambulatory Charlee Higgins Facility:[facility] Start: 02-13-2025 End: 02-13-2025 Telephone encounter Masha Montanez MD Work Phone: [facility] Comment on above: Question Start: 02-13-2025 End: 02-13-[address] Juan F Lugo MD -[facility] Start: 02-13-2025 End: 06-23-[address] Magi Wilson DO Work Phone: [facility] Work Phone: Start: 02-07-2025 End: 02-07-[address] Magi Wilson DO Work Phone: [facility] Work Phone: Start: 02-07-2025 End: 02-07-2025 Patient encounter procedure Nola Gaston EQUAL EMPLOYMENT OPPORTUNITY OFFICER-C -[facility] Start: 02-07-2025 End: 02-07-2025 ambulatory Nola Gaston Facility:[facility] Start: 01-17-2025 End: 01-17-[address] Juan F Lugo MD -[facility] Start: 01-17-2025 End: 01-17-[address] Magi Wilson DO Work Phone: [facility] Work Phone: Start: 04-07-2023 End: 04-07-2023 Patient encounter procedure YUSEF PHILLIPS HARBOUR MASTER-SEAT COVER CUTTER [facility] Start: 07-24-2022 End: 07-29-2022 ambulatory BRINDA ALBERT HARBOUR MASTER-SEAT COVER CUTTER Facility:[facility] Start: 07-24-2022 End: 07-28-2022 Outreach Lab [facility] 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 Start: 01-27-2022 End: 01-28-2022 ambulatory BRINDA ALBERT HARBOUR MASTER-SEAT COVER CUTTER Facility:[facility] Start: 01-27-2022 End: 01-27-2022 Patient encounter procedure BRINDA ALBERT HARBOUR MASTER-SEAT COVER CUTTER [facility] Start: 05-20-2019 Patient encounter procedure MAGI WILSON Facility:[facility] Start: 11-16-2018 End: 11-16-2018 Patient encounter procedure MAGI PLATE Facility:[facility] Start: 05-11-2018 End: 05-11-2018 Patient encounter procedure MAGI WILSON Facility:[facility] Start: 04-29-2018 Patient encounter procedure MAGI WILSON Facility:[facility] Start: 01-21-2018 End: 01-21-2018 Patient encounter procedure MASHA MONTANEZ Facility:[facility] Start: 03-21-2016 End: 03-21-2016 Patient encounter procedure Masha Montanez Work Phone: [facility] Start: 03-21-2016 Results Only Masha Montanez Work Phone: [facility] Procedures Date Procedure Procedure Detail Performing Clinician Start: 04-17-2025 Prostate specific an tigen measurement Dr. Magi Wilson DO Work Phone: Comment on above: This test was perfor med using the [employer] tPSA method. Measured values of a patient sample can vary depending on the testing procedure used. PSA values determined on patient samples by different testing procedures cannot be used interchangeably. If there is a change in PSA assays while monitoring therapy, sequential testing should be performed to confirm baseline values. Start: 03-23-2025 CT of lower limb wit h contrast Dr. Magi Wilson DO Work Phone: Start: 03-23-2025 CT of pelvis with contrast Dr. Magi Wilson DO Work Phone: Start: 02-13-2025 Plain x-ray of pelvi s and lower extremity Dr. Magi Wilson DO Work Phone: Start: 02-13-2025 X-ray of lumbosacral spine Dr. Magi Wilson DO Work Phone: Start: 02-07-2025 Positron emission tomography with computed tomography Dr. Magi Wilson DO Work Phone: Start: 01-17-2025 Plain X-ray abdomen Dr. 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 Comment on above: tumor 04/09 Plan of Treatment Date Care Activity Detail Author Start: 04-24-2025 Influenza vaccination Influenz a Vaccine (Season Ended) [facility] Start: 02-13-2025 Plain x-ray of pelvi s and lower extremity HIP, UNI W/ Pelvis 2-3 Views [facility] Start: 02-13-2025 X-ray of lumbosacral spine L/S Spine Min 4 Views [facility] Start: 02-13-2025 XR Spine Lumbar and Sacrum GE 4 Views [facility] Start: 02-13-2025 Plain radiography of pelvis Pelvis 1 or 2 Views [facility] Start: 01-17-2025 Plain X-ray abdomen Abdomen Single V iew [facility] Start: 08-24-2024 Advance Directive Discussion Advance Directive Discussion [facility] Start: 04-24-2024 Covid-19 Vaccine ( season) Covid-19 Vaccine ( season) [facility] Start: 2023 RSV Vaccine (1 - 1-d ose 75+ series) RSV Vaccine (1 - 1-dose 75+ series) [facility] Start: 04-07-2023 Urine microalbumin profile [facility] Start: 11-16-2021 DIABETES SCREEN DIABETES SCREEN [facility] Start: 11-16-2021 Diabetes Screening Diabetes Screenin g [facility] Start: 09-25-2020 LIPID SCREEN LIPID SCREEN [facility] Start: 04-24-2020 Influenza vaccination INFLUENZA (#1) [facility] Start: 03-17-2018 Tuberculosis screening [facility] SCREENING,SEE MODIFIER [facility] Start: 2013 ADVANCE DIRECTIVE DISCUSSION ADVANCE DIRECTIVE DISCUSSION [facility] Start: 1998 SHINGRIX VACCINE (1 of 2) TAVERA GRIX VACCINE (1 of 2) [facility] Start: 1966 Anxiety Screening Anxiety Screening [facility] Start: 1966 Depression Screening Depression Scre ening [facility] Immunizations Immunization Date Immunization Notes Care Provider Jeremy benavides 07-08-2021 SARS-CoV-2 (COVID-19 ) mRNA-1273 vaccine BRINDA 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 10-08-2020 COVID-19, mRNA, LNP- S, PF, 100 mcg or 50 mcg dose; Translations: [Moderna COVID-19 Vaccine] BRINDA ALBERT [facility] 05-24-2020 influenza virus vacc ine, unspecified formulation BRINDA ALBERT [facility] 05-23-2019 influenza, injectabl e, quadrivalent, preservative free; Translations: [Fluarix PF Quadrivalent ] BRINDA ALBERT [facility] 05-11-2018 influenza virus vacc ine, unspecified formulation BRINDA ALBERT [facility] 05-11-2018 influenza, high dose seasonal, preservative-free Masha Montanez MD Work Phone: [facility] 09-25-2015 influenza virus vacc ine, unspecified formulation BRINDA ALBERT [facility] 09-25-2015 influenza, high dose seasonal, preservative-free Masha Montanez [facility] 09-25-2015 pneumococcal polysaccharide vaccine, 23 valrichard Montanez MD Work Phone: [facility] 04-24-2015 pneumococcal conjuga te vaccine, 13 valrichard Montanez [facility] 10-11-2013 influenza virus vacc ine, unspecified formulation BRINDA ALBERT [facility] 10-11-2013 influenza, seasonal, injectable [facility] 10-11-2013 pneumococcal polysaccharide vaccine, 23 valent [facility] 04-07-2013 tetanus toxoid, redu junie diphtheria toxoid, and acellular pertussis vaccine, adsorbed [facility] Payers Date Payer Category Payer Self-pay 2022 Medicare [id number] 2013 Medicare MEDICARE MEDICAR E A AND B [id number] 2013-Present [place] Medicare [id number] 2013 Medicare MEDICARE [id number] 2013 Private Health Insurance HUMANA HUMANA MEDICARE SUPPLEMENT [id number] 2013-Present Indemnity [id number] 2013 Private Health Insurance HUMANA [id number] 1948 Unknown [id number] .[id number] 1948 Unknown [id number] .2.278 1948 Unknown [id number] .2.278 1948 Unknown [id number] [id number] .2.278 1948 Unknown [id number] [id number] .2.278 1948 Unknown [id number] [id number] .2.627 1950 Unknown [id number] .2.627 Medicare [id number] Medicare [id number] Private Health Insurance [id number] Unknown [id number] Unknown [id number] [id number] .[id number] Unknown [id number] .2.462 Unknown [id number] [id number] .2.462 Unknown [id number] [id number] .2.462 Unknown [id number] .2.462 Social History Date Type Detail Facility Start: 01-29-2016 Tobacco smoking stat [facility] Unknown if ever smoked [facility] Start: 01-29-2016 End: 05-08-2016 Tobacco use and exposure [facility] History of tobacco use Chews Tobacco [facility] Start: 01-29-2016 End: 11-16-2018 Alcohol intake Current non-drinker of alcohol (finding) [facility] Start: 1950 Sex Assigned At Not on file C [facility] Tobacco Tobacco Use: sukumar wing tobacco. [facility] Sex Assigned At [facility] Start: 01-17-2025 End: 02-13-2025 Tobacco smoking status NHIS Ex-smoker (finding) [facility] Start: 1950 Sex Assigned At Male W [facility] History of tobacco use Current smoker [facility] Start: 11-16-2018 End: 07-29-2020 History of Social function [facility] Start: 11-16-2018 End: 07-29-2020 Tobacco use panel [facility] Adult Depression Screening Assessment 0 [facility] Clinical Notes 07-27-2022 to 03-23-2025 Telephone Encounter - Maria Del Rosario Munguia RN - 02/13/2025 8:53 AM EDTTelephone Encounter - Maria Del Rosario Munguia RN - 02/13/2025 8:53 AM EDTLaboratoryLaboratory Note Date & Type Note Facility 03-23-2025 Radiology Diagnostic study note [facility] Services [address] [place] [address] Extremity Lower WITH Contrast MR#: [id number] Acct: [id number] Name: ALMA ZUNIGAKUSHAL HARKINS Rep #: [id number] : [id number] M [id number] From: Bjorn Abbott MD PCP: PENELOPE LouisC Status: REG C ORALIA Study:Extremity Lower WITH Contrast Date of E xam: 03/23/25 Exam# [id number] Ordering Dr: Doreen Higgins ra, DO PROCEDURE: [...] Limited imaging of the right knee demonstrates xhdf-ss-eeryiurn degenerative changes. No right knee joint effusion is noted. No other significant osseous abnormality is seen. No free or loculated fluid collection is noted. CT/Extremity Lower WITH Contrast IMPRESSION: No evidence of acute disease. Additional findings as noted. Reading Location: [place] [address] CC: EQUAL EMPLOYMENT OPPORTUNITY OFFICERAbiodun Gaston; Dr. Charlee Higgins DO ~ Quality Control Tech Raw Materials: Signed [facility] 03-23-2025 Radiology Diagnostic study note [facility] Imaging Services [address], [place] [address] Pelvis WITH IV Contrast MR#: [id number] Acct: [id number] Name: ALMA JRKUSHAL TORIN Cohen Rep #: [id number] : [id number] M [id number] From: Justice Jackson MD PCP: NEGRITA Louis Status: REG C LI Study:Pelvis WITH IV Contrast Date of Exam: 03/23/25 Exam# [id number] Ordering Dr: Doreen Higgins ra, DO PROCEDURE: [...] the bladder with prosthetic enlargement. Reading Location: [id number] CC: NEGRITA Gaston; Dr. Charlee Higgins, DO ~ Quality Control Tech Raw Materials: Signed [facility] 02-13-2025 Telephone encounter Note Received call from Cheryl with [facility], patient is new to the practice and did not know his history or any surgery history. Informed Cheryl that patient had a bilateral orchiectomy in 2016. Gave Cheryl the phone number for medical records that patient can request his complete records. Maria Del Rosario Munguia RN [facility] Work Phone: 02-13-2025 Miscellaneous Notes Received call from Cheryl with [facility], patient is new to the practice and did not know his history or any surgery history. Informed Cheryl that patient had a bilateral orchiectomy in 2016. Gave Cheryl the phone number for medical records that patient can request his complete records. Maria Del Rosario Munguia RN documented in this encounter [facility] 07-27-2022 Note . MICRO - Microbiology PROCEDURE: [...] Locations *1: This test was performed at: , [address] [place] [address], [address] [place] [address] ([place]) Evaluation + Plan note Future Appointments Appointment Date:03/19/2022 08:50:00 AM Scheduled Provider:BRINDA ALBERT Location:[facility] Appointment Type:PC OV Follow Up Future Scheduled TestsLipid Profile 09/11/21Complete Metabolic Panel 03/12/21 [facility] Evaluation + Plan note Future Appointments Appointment Date:09/29/2022 09:00:00 AM Scheduled Provider:YUSEF PHILLIPS Location:[facility] Appointment Type:PC OV Future Scheduled TestsLipid Profile 09/11/21 [facility] Evaluation + Plan note Future Appointments Appointment Date:10/09/2023 09:00:00 AM Scheduled Provider:YUSEF PHILLIPS Location:[facility] Appointment Type:PC OV [facility] Evaluation note No assessment inform ation available [facility] Work Phone: Hospital course Narrative No data available for this section [facility] Hospital Discharge instructions No data available for this section [facility] Progress note No data available for this section [facility] Reason for referral (narrative) No reason for referral information available [facility] Work Phone: Summary Purpose Family History No [...] section and content) DATE CREATED AUTHOR 11/19/2018 [facility] DATE CREATED AUTHOR AUTHOR'S ORGANIZ ATION 07/30/2022 [facility] ([place]) DATE CREATED AUTHOR AUTHOR'S ORGANIZ ATION 02/14/2025 [facility] DATE CREATED AUTHOR AUTHOR'S ORGANIZ ATION 05/02/2025 [facility] Source Comments (unrecognize d section and content) In the event this informatio n is protected by the Federal Confidentiality of Alcohol and Drug Abuse Patient Records regulations: The Federal rules restrict any use of the information to criminally investigate or prosecute any alcohol or drug abuse patient.[facility] the event this information is protected by the Federal Confidentiality of Alcohol and Drug Abuse Patient Records regulations: The Federal rules restrict any use of the information to criminally investigate or prosecute any alcohol or drug abuse patient.[facility] Care Team (unrecognized sect ion and content) Team Status: Active Member Role Status Dates Dr. Magi Wilson DO Primary Care Provider Active Team Status: Inactive Member Role Status Dates Dr. Magi Wilson DO Primary Care Provider Active Start: January 17, 2025 End: January 17, 2025 Dr. Juan F Lugo MD Attending Provider Active S tart: January 17, 2025 End: January 17, 2025 Team Status: Active Member Role Status Dates Dr. Magi Wilson DO Primary Care Provider Active Start: February 07, 2025 NEGRITA Louis Attending Provider Active Start: February 07, 2025 NEGRITA Louis Referring Provider Active Start: February 07, 2025 Team Status: Inactive Member Role Status Dates Dr. Magi Wilson DO Primary Care Provider Active Start: February 13, 2025 End: February 13, 2025 Dr. Juan F Lugo MD Attending Provider Active S tart: February 13, 2025 End: February 13, 2025 Team Status: Active Member Role Status Dates Dr. Magi Wilson DO Family Provider Active Dr. 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 Magi Wilson DO Primary Care Provider Active Start: February 07, 2025 End: February 07, 2025 NEGRITA Louis Attending Provider Active Start: February 07, 2025 End: February 07, 2025 NEGRITA Louis Referring Provider Active Start: February 07, 2025 End: February 07, 2025 Team Status: Active Member Role/Relationship Status Dates NEGRITA Louis Primary Care Provider Active Team Status: Inactive Member Role/Relationship Status Dates Dr. Magi Wilson DO Primary Care Provider Active Start: January 17, 2025 End: January 17, 2025 Dr. Juan F Lugo MD Attending Provider Active S tart: January 17, 2025 End: January 17, 2025 Team Status: Inactive Member Role/Relationship Status Dates Dr. Magi Wilson DO Primary Care Provider Active Start: February 07, 2025 End: February 07, 2025 NEGRITA Louis Attending Provider Active Start: February 07, 2025 End: February 07, 2025 NEGRITA Louis Referring Provider Active Start: February 07, 2025 End: February 07, 2025 Team Status: Inactive Member Role/Relationship Status Dates Dr. Magi Wilson DO Primary Care Provider Active Start: February [...] Provider Active Start: March 23, 2025 End: Yumiko 31st, 2025 Team Status: Inactive Member Role/Relationship Status Dates NEGRITA Louis Primary Care Provider Active Start: April 17, 2025 End: April 17, 2025 Dr. Eliecer Rebollar MD Attending Provider Active Start: April 17, 2025 End: April 17, 2025 Dr. Eliecer Rebollar MD Referring Provider Active Start: April 17, 2025 End: April 17, 2025 Care Team (unrecognized sect ion and content) Care Team Personnel Name: BRINDA ALBERT NITHYA-MEGAN Position: P4 Advanced Practice Nurse Member Role: Primary Care Physician Address: Address: [address] [place] [address]- [place] Care Team Related Persons Name: SHEN SHEETS [...] BE BASED ON THE PRIMARY CLINICAL RECORDS. [employer] provides no warranty or guarantee of the accuracy or completeness of information in this document.
[2025-05-04] MEDS: 0.9% Normal Saline (1000mL) 1,000 ML 125 ML IV (01:47)
[2025-05-04 03:02] VITALS: O2SAT 90
[2025-05-04 03:05] VITALS: BP 139/64; PULSE 66; RESP 16; TEMP 36.6; O2SAT 97
[2025-05-04 06:38] VITALS: BP 132/60; PULSE 73; RESP 16; TEMP 36.5; O2SAT 92
--- NOTE | 2025-05-04 07:23 | PCM.DC.SUM ---
Providers Date of Admission: 05/03/25 Primary Care Physician: Nola Gaston, ASSOCIATE PROFESSOR OF HISTORY-C Reason For Visit: URETHRAL STRICTURE, SP TUBE PLACEMENT Medications at Discharge Home Medications omega 3-dha 60 mg-epa 90 mg-fish oil 500 mg capsule, delayed release (Fish Oil) 500 mg PO DAILY 03/10/16 acetaminophen 650 mg tablet,extended release (Arthritis Pain Relief (acetaminophen) ER) 650 mg PO Q12H PRN pain 04/28/25 cholecalciferol (vitamin D3) 50 mcg (2,000 unit) capsule (Vitamin D3) 50 mcg PO DAILY 04/28/25 docusate sodium 100 mg capsule (Stool Softener) 100 mg PO DAILY PRN constipation 04/28/25 furosemide 20 mg tablet 20 mg PO DAILY 04/28/25 simvastatin 20 mg tablet 20 mg PO QHS 04/28/25 ciprofloxacin HCl 500 mg tablet (Cipro) 500 mg PO BID #14 tabs 05/03/25 oxycodone 5 mg tablet 5 mg PO Q6H PRN pain 7 days #20 tabs 05/03/25 Hospital Course Operations - (Placement open suprapubic tube due to significant urethral scar tissue, patient will go home with SP tube follow-up as an outpatient) Weight / BMI Weight Weight: 119 kg Body Mass Index (BMI) 39.9 D/C Instructions Call your doctor if you observe: Fever of 101 or Higher and Uncontrolled pain Catheter: - (Suprapubic catheter) Drain: [place] DC O2, CPAP, BIPAP Needs Home O2 Discharge instructions: No Please Follow Up With: Eliecer Rebollar MD When: Call [phone] for an appointment Meaningful Use Info Meaningful Use Meaningful Use Diagnoses (Choose all that apply): None applicable Discharge Plan Admission Admit Date/Time: 05/03/25 14:55 Primary Reason for Your Visit: open SP tube Attending Provider: Eliecer Rebollar Primary Care Provider: Nola Gaston Discharge Orders/Prescriptions Prescriptions: New ciprofloxacin HCl [Cipro] 500 mg tablet 500 mg PO BID Qty: 14 0RF oxycodone 5 mg tablet 5 mg PO Q6H PRN (Reason: pain) 7 Days Qty: 20 0RF Continued Fish Oil 500 MG capsule,delayed release(DR/EC) 500 mg PO DAILY simvastatin 20 mg tablet 20 mg PO QHS furosemide 20 mg tablet 20 mg PO DAILY cholecalciferol (vitamin D3) [Vitamin D3] 50 mcg (2,000 unit) capsule 50 mcg PO DAILY docusate sodium [Stool Softener] 100 mg capsule 100 mg PO DAILY PRN (Reason: constipation) acetaminophen [Arthritis Pain Relief (acetam)] 650 mg tablet extended release 650 mg PO Q12H PRN (Reason: pain) Referrals / Follow Up: Eliecer Rebollar MD [Med Staff - Active Staff] - Nola Gaston NP-C [Primary Care Provider] - Disposition Discharge Orders: Discharge Patient (Routine); Ordered 05/04/25 Ordered By: Dr. Eliecer Rebollar
[2025-05-04 08:38] VITALS: BP 131/75; PULSE 72; RESP 18; TEMP 36.2; O2SAT 95
--- NOTE | 2025-05-04 09:29 | CASEMGMT ---
Pt nurse requesting pt be dc'd as pt is ready. She states pt will dc with [facility] and teaching has been done. Pt to dc home.
== END 2025-05-04 10:22 | disposition home or self-care (01) ==
LOC: SDC 15:02 → MS3 15:02
PROVIDERS: Admitting Provider Urology; PCP Nurse Practitioner Family; Referring Provider Urology; Visit Provider Urology
PROC: 0TJB8ZZ Inspection of Bladder, Via Natural or Artificial Opening Endoscopic (ICD-10-PCS; CPT 52000; principal; 2025-05-03 12:25)
DX: N40.1 Benign prostatic hyperplasia with lower urinary tract symptoms (principal); N35.011 Post-traumatic bulbous urethral stricture; Z79.899 Other long term (current) drug therapy; Z53.31 Laparoscopic surgical procedure converted to open procedure; F17.220 Nicotine dependence, chewing tobacco, uncomplicated
CPT/HCPCS: 51040; 00860; 76000; 94668; 96361; 96365; 96375; 99221; 99406; C1769; G0378; J0744; J2405